=== PATIENT | male | born 1940 | race Caucasian/White ===

== ENCOUNTER 2019-03-30 15:10 | Outpatient (RCR) | payer MEDICARE, SELFPAY ==
[2019-02-03 13:38] LABS: Basophils Absolute Auto 0.07 K/mm3 (0.00-0.10); Basophils Percent Auto 0.7 % (0.0-1.0); Eosinophils Absolute Auto 0.48 K/mm3 (0.02-0.50); Hematocrit 41.9 % (37.0-46.0); Hemoglobin 13.5 g/dL (12.4-15.3); Immature Granulocyte Absolute 0.13 K/mm3 (0.00-0.00); Immature Granulocyte Percent A 1.4 % (0.0-0.0); Lymphocytes Absolute Auto 1.85 K/mm3 (1.10-4.50); Lymphocytes Percent Auto 19.3 % (18.0-42.0); Mean Corpuscular HGB Conc 32.2 g/dL (32.0-36.0); Mean Corpuscular Hemoglobin 31.8 pg (27.0-31.0); Mean Corpuscular Volume 98.8 fL (78.0-102.0); Mean Platelet Volume 9.1 fl (8.7-11.0); Monocytes Absolute Auto 0.73 K/mm3 (0.10-0.90); Monocytes Percent Auto 7.6 % (2.0-11.0); Neutrophils Absolute Auto 6.4 K/mm3 (1.7-7.2); Platelet Count Result 158 K/mm3 (150-420); Red Blood Count 4.24 M/mm3 (4.70-6.10); Red Cell Distribution Width 14.1 % (11.6-14.4); White Blood Count 9.6 K/mm3 (4.8-10.8)
== END 2019-05-04 23:59 | disposition home or self-care (01) ==
LOC: CHSLAB 15:10
PROVIDERS: PCP Internal Medicine; Visit Provider Internal Medicine Pulmonary Disease
DX: Z79.899 Other long term (current) drug therapy (principal)
CPT/HCPCS: 36415; 85025

== ENCOUNTER 2019-04-19 16:43 | Inpatient (IN) | payer MEDICARE, MEDICAID, SELFPAY ==
[2019-04-19] VITALS (10 sets, daily range): BP systolic 114–166; BP diastolic 74–112; PULSE 84–91; RESP 16–28; TEMP 36.7–36.8; O2SAT 94–99; BMI 20.1
--- NOTE | ~2019-04-19 | XR_ITS ---
EXAMINATION: XR chest 1V portable DATE: 04/19/2019 17:29 INDICATION: Shortness of breath and cough TECHNIQUE: frontal view of the chest was obtained. COMPARISON: Chest radiograph dated 12/12/[address] dated 10/27/1989 FINDINGS: Severe emphysema with regions of increased lucency and architectural distortion most prominent at the lateral lower lung zones. Unchanged oblique band of lingular atelectasis/scarring extending laterall y from the left hilum. Subtle linear discoid atelectasis in the right midlung zone and at the left co stophrenic angle. Couple calcified nodules consistent with old granulomatous disease in the right low er lobe no new airspace opacities, pulmonary edema, pleural effusion or pneumothorax. The cardiomedia stinal silhouette is normal. Mild thoracic levocurvature. IMPRESSION: 1. Severe emphysema with bilateral discoid atelectasis/scarring, new at the left costophrenic angle a nd otherwise unchanged. Reviewed, dictated and finalized at location A. ET RESEARCH ANALYST IMPRESSION: 1. Severe emphysema with bilateral discoid atelectasis/scarring, new at the lef t costophrenic angle and otherwise unchanged.
--- NOTE | ~2019-04-19 | CT_ITS ---
EXAMINATION: CTA chest PE protocol DATE: 04/19/2019 19:06 INDICATION: Prior pulmonary embolism presenting with shortness of breath and elevated d-dimer TECHNIQUE: Computed tomography (CT) pulmonary angiogram of the chest was performed with 100 mL Omnipa que-350 intravenous contrast. Additional 3D reconstructions utilizing coronal maximum intensity proje ction (MIP) were performed. Automated exposure control and iterative reconstruction technique were em ployed. The dose-length product was 209.88 mGy-cm. COMPARISON: 10/27/2018 FINDINGS: Excellent contrast opacification of the pulmonary arteries. There is mild streak artifact from dense contrast in the superior vena cava and right atrium. Pattern respiratory motion artifact is prominent at the lung bases were decreases sensitivity in the basilar subsegmental pulmonary arteries. No sign ificant change in an eccentric filling defect extending across the bifurcation of the left main pulmo nary artery consistent with chronic thrombus. No acute pulmonary embolism. Severe emphysema with unch anged pattern of chronic bandlike atelectasis/scarring in the right middle and anterior right upper l obes and in the left upper lobe along the major fissure. There is new patchy airspace consolidation a t the perihilar posterior segment of the left upper lobe suspicious for pneumonia. A few calcified no dules in the left lower lobe consistent with old granulomatous disease. No pleural effusion. Heart si ze is normal. Atherosclerotic coronary artery calcifications. No pericardial effusion. Small sliding- type hiatal hernia. No pathologically enlarged thoracic adenopathy. 2.5 cm exophytic cyst at the uppe r pole of the left kidney. Partially visualized aortobiiliac stent graft. Mild to moderate thoracic s pondylosis and severe lower cervical spondylosis. Chronic mild anterior wedging of a few mid thoracic vertebral bodies. IMPRESSION: 1. Unchanged chronic nonocclusive peripheral thrombus at the bifurcation of the left main pulmonary a rtery. No acute pulmonary embolism. 2. Severe emphysema with bilateral chronic scarring. 3. New airspace disease in the posterior left upper lobe concerning for pneumonia. 4. Small sliding-type hiatal hernia. Reviewed, dictated and finalized at location A. TAL ACCOUNT COORDINATOR IMPRESSION: 1. 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 No acute pulmonary embolism. 2. Severe emphysema with bilateral chronic scarring. 3. New airspace disease in the posterior left upper lobe concerning for pneumon ia. 4. Small sliding-type hiatal hernia.
--- NOTE | 2019-04-19 17:10 | ECG_ITS ---
Measurements Intervals [place] Rate: 89 P: 79 SD: 164 QRS: 81 QRSD: 86 T: 75 QT: 357 QTc: 434 Interpretive Statements SINUS RHYTHM DELAYED PRECORDIAL R/S TRANSITION BASELINE ARTIFACT- AVF, V1-V6 BORDERLINE ECG Electronically Signed On 04-20-2019 7:18:20 CAMPAIGN MANAGEMENT SPECIALIST by Ryan Garcia D.O.
--- NOTE | 2019-04-19 17:10 | ED.SOB ---
HPI - SOB/Dyspnea General Chief Complaint: Shortness of Breath/Dyspnea Stated Complaint: Ambulance Related Data Home Medications Medication Instructions Recorded Confirmed Saccharomyces boulardii [Florastor] 250 mg PO BID 04/19/19 04/19/19 ascorbic acid (vitamin C) [Vitamin 500 mg PO DAILY 04/19/19 04/19/19 C] aspirin [Aspirin Low Dose] 81 mg PO DAILY 04/19/19 04/19/19 budesonide 2 ml INHALATION BID 04/19/19 04/19/19 cholecalciferol (vitamin D3) 125 mcg PO DAILY 04/19/19 04/19/19 dextromethorphan-guaifenesin 1 tablet PO Q12H 04/19/19 04/19/19 [Mucinex DM] ipratropium-albuterol 3 ml INHALATION Q4H PRN 04/19/19 04/19/19 montelukast 10 mg PO DAILY 04/19/19 04/19/19 roflumilast [Daliresp] 500 mcg PO DAILY 04/19/19 04/19/19 warfarin 2 mg PO DAILY 04/19/19 04/19/19 Allergies Allergy/AdvReac Type Severity Reaction Status Date / Time prednisone Allergy Hives Verified 04/19/19 17:10 Review of Systems Review of Systems: Narrative: SOB, chest congestion and increased cough (occasional light green sputum) onset 3 - 4 days ago associated with D.O.E. 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 He has been on prednisone 10 mg daily for several years; followed by Dr. Singleton, pulmonology. Last seen in February, no change in meds. Appetite has been decreased. Denies fever/ chills. Hx of PE 10/2018, continues to take warfarin 2 mg daily. Hx of COPD; last exacerbation in December,, tx with azithromycin. Constitutional: Constitutional: Denies chills and Denies fever(s) Eyes: Eyes: Denies no additional eye complaints ENT: Denies nasal congestion and Denies sore throat Cardiovascular: Cardiovascular: Denies chest pain Respiratory: Respiratory: Reports no additional respiratory complaints Gastrointestinal: Gastrointestinal: Denies abdominal pain, Denies diarrhea and Denies vomiting Genitourinary: Genitourinary: Denies urinary incontinence Neurologic: Denies syncope Psychiatric: Psychiatric: Denies anxiety and Denies depression Hematologic/Lymphatic: Hematologic/Lymphatic: Reports easy bruising Allergic/Immunologic: Allergic/Immunologic: Reports other Comments: Hx of being on prednisone 30 mg daily for several weeks, breaking out with raised, hive like rash on trunk and lower extremities. The rash did not come and go and was very pruritic; did not involve the hands, face or mouth. The dose of prednisone was dropped to 10 mg daily. The rash resolved over the next 2 - 3 weeks. 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 [facility] Past Medical History Medical History (Updated 04/19/19 @ 19:49 by Tommy Martins MD) COPD (chronic obstructive pulmonary disease) Pulmonary embolus October 2018 Surgical History Surgical History (Updated 04/19/19 @ 17:41 by Tommy Martins MD) History of repair of aneurysm of abdominal aorta Stented coronary artery Social History Social History (Updated 04/19/19 @ 18:28 by Tommy Martins MD) Smoking status: Former smoker Living arrangements: alone Additional living arrangements comments: Daughter lives next door, makes meals, checks on him multiple times/day. of spouse 1 year ago. Gender identity (if verbalized by the patient): Male Exam Const: General: alert Orientation/consciousness: patient oriented x3 HENMT: Mouth: Yes Normal oral and palatal mucosa present Neck: Neck: no lymphadenopathy Chest: Chest palpation & inspection: normal inspection of the chest Resp: Effort & Inspection: retractions and uses accessory muscles Auscultation: rales (few crackles in both bases. ), no rhonchi and no wheezes Other: not in tripod position. Sitting up. Speaks in full sentences. Cardio: Other: No lift/heave/thrill I could not hear heart sounds. JVD at 20 degrees. GI: Inspection: distended GI Palp: Yes Soft to palpation, No Tenderness to palpation present (GI) and No Guarding due to palpation present (GI) : General: Yes bladder normal to palpation Skin: Othe
--- NOTE | 2019-04-19 17:11 | PC.NURSE ---
States he can take prednisone as long as it is less than 10mg dose. States if he takes a dose over 10mg he breaks out in hives.
[2019-04-19 17:29] LABS: Basophils Absolute Auto 0.02 K/mm3 (0.00-0.10); Basophils Percent Auto 0.2 % (0.0-1.0); Eosinophils Percent Auto 1.2 % (1.0-6.0); Hematocrit 44.1 % (37.0-46.0); Hemoglobin 14.2 g/dL (12.4-15.3); Immature Granulocyte Absolute 0.06 K/mm3 (0.00-0.00); Immature Granulocyte Percent A 0.7 % (0.0-0.0); Lymphocytes Absolute Auto 0.26 K/mm3 (1.10-4.50); Lymphocytes Percent Auto 3.1 % (18.0-42.0); Mean Corpuscular HGB Conc 32.2 g/dL (32.0-36.0); Mean Corpuscular Hemoglobin 31.6 pg (27.0-31.0); Mean Corpuscular Volume 98.2 fL (78.0-102.0); Mean Platelet Volume 9.1 fl (8.7-11.0); Monocytes Absolute Auto 0.27 K/mm3 (0.10-0.90); Monocytes Percent Auto 3.2 % (2.0-11.0); Neutrophils Absolute Auto 7.8 K/mm3 (1.7-7.2); Neutrophils Percent Auto 91.6 % (50.0-70.0); Platelet Count Result 224 K/mm3 (150-420); Red Blood Count 4.49 M/mm3 (4.70-6.10); Red Cell Distribution Width 13.2 % (11.6-14.4); White Blood Count 8.5 K/mm3 (4.8-10.8)
[2019-04-19] MEDS: IPRATROPIUM 0.5 MG/ALBUTEROL SULFATE 2.5 MG AMPUL.NEB 3 ML INHALATION ×2 (17:30→23:55)
[2019-04-19] MEDS: BUDESONIDE RESPULE NEB 0.5 MG/2 ML AMP 2 MG NEBULIZE (17:34)
[2019-04-19 17:47] LABS: Alanine Aminotransferase 19 U/L (16-63); Albumin Level 3.4 g/dL (3.4-5.0); Alkaline Phosphatase 58 U/L (46-116); Anion Gap 14.4 mmol/L (7-16); Aspartate Amino Transferase 13 U/L (15-37); Bilirubin,Total 0.5 mg/dL (0.00-1.00); Blood Urea Nitrogen 21 mg/dL (7-18); Carbon Dioxide 30 mmol/L (21-32); Chloride 103 mmol/L (98-108); Estimated CRCL calculation 39 ml/min; Estimated Glomerular Filt Rate 55; Glucose 112 mg/dL (70-99); Osmolality Calculated 300 mOsm/kg (285-295); Potassium 4.4 mmol/L (3.5-5.1); Sodium 143 mmol/L (136-145); Total Protein 7.6 g/dL (6.4-8.2)
[2019-04-19 17:48] LABS: Troponin I < 0.02 ng/mL (0.00-0.056)
[2019-04-19 17:49] LABS: INR 4.4; Lactic Acid 1.7 mmol/L (0.4-2.0); Prothrombin Time 43.5 Seconds (9.64-11.0)
[2019-04-19 17:51] LABS: D Dimer 1.98 mg/L (0.19-0.50)
[2019-04-19 17:57] LABS: BNP 65.7 pg/mL (0-100)
[2019-04-19 18:00] LABS: Influenza Control Valid (Valid)
--- NOTE | 2019-04-19 18:20 | PC.NURSE ---
Dr Martins at bedside discussing plan for CTA chest with pt.
[2019-04-19 18:32] LABS: Base Excess ABG 0.4 mmol/L (0-2); HCO3 ABG 26.4 mmol/L (23-29); Oxygen Content ABG 20.4 %vol (16.0-22.0); Oxygen Saturation ABG 98.3 % (95-97); Oxyhemoglobin 97.4 % (94-100); PCO2 ABG 47.2 mmHg (35-45); PO2 ABG 123.9 mmHg (75-85); Total Hemoglobin 14.8 g/dL; pH ABG 7.37 (7.35-7.45)
[2019-04-19 18:33] LABS: Device NASAL CANNULA; Modified Allen's Test Pass
[2019-04-19 18:35] LABS: Site Drawn RIGHT RADIAL
--- NOTE | 2019-04-19 19:28 | PC.NURSE ---
Pt resting on [facility]. No change in condition. Awaiting CTA chest results for dispo per Dr Martins.
[2019-04-19] MEDS: methylPREDNISolone SOD SUCC 125 MG VIAL 40 MG IV PUSH (19:52)
--- NOTE | 2019-04-19 19:57 | PC.NURSE ---
Pt aware of plan for admission. Room assignment received. Waiting for admission orders prior to calling report and transporting pt to the floor.
[2019-04-19] MEDS: SODIUM CHLORIDE 0.9% IV 1,000 ML 75 ML IV CONT (21:28)
--- NOTE | 2019-04-19 21:40 | PC.NURSE ---
pt and daughter request that she stay the night as he is very anxious, caden is here to attach the hi flow 02 for him, pt sitting up on side of bed, given jello and pb/crackers on request, fluids started, pt has no complaints at this time
[2019-04-20] VITALS (18 sets, daily range): BP systolic 106–135; BP diastolic 68–95; PULSE 74–109; RESP 14–26; TEMP 36.2–37.1; O2SAT 94–97
[2019-04-20] MEDS: methylPREDNISolone SOD SUCC 125 MG VIAL 40 MG IV PUSH ×2 (05:35→09:28)
[2019-04-20] MEDS: IPRATROPIUM 0.5 MG/ALBUTEROL SULFATE 2.5 MG AMPUL.NEB 3 ML INHALATION ×3 (05:40→18:19)
[2019-04-20] MEDS: BUDESONIDE RESPULE NEB 0.5 MG/2 ML AMP 1 MG INHALATION ×2 (05:51→18:21)
[2019-04-20 05:55] LABS: Magnesium 2.1 mg/dL (1.8-2.4)
[2019-04-20 06:03] LABS: INR 4.7
--- NOTE | 2019-04-20 06:15 | PC.NURSE ---
Patient had difficulty breathing after 2nd neb treatment. Congestion present and patient was having difficulty clearing it out. Coughed up thick blood tinged sputum. breathing improved. RT present.
--- NOTE | 2019-04-20 08:01 | PC.NURSE ---
up sitting on edge of bed, no assistance needed to get to sitting position, oxygen continues, no change
[2019-04-20] MEDS: ENOXAPARIN 40 MG/0.4 ML SYRINGE SUB-Q (09:28)
[2019-04-20] MEDS: MONTELUKAST SODIUM 10 MG TABLET PO (09:29)
[2019-04-20] MEDS: ASCORBIC ACID 500 MG TABLET PO (09:29)
[2019-04-20] MEDS: ASPIRIN 81 MG ENTERIC TABLET PO (09:29)
[2019-04-20] MEDS: CHOLECALCIFEROL 1,000 UNIT TABLET 5000 UNITS PO (09:30)
--- NOTE | 2019-04-20 09:30 | PC.NURSE ---
fluids infusing, sitting on edge of bed, family in room, oxygen continues, loose cough continues, offers no c/o
[2019-04-20] MEDS: SACCHAROMYCES BOULARDII 250 MG CAPSULE PO ×2 (09:39→18:20)
[2019-04-20] MEDS: ROFLUMILAST 500 MCG TABLET PO (09:39)
--- NOTE | 2019-04-20 10:00 | PM.IMHP ---
H&P: HPI History of Present Illness Chief complaint: Ambulance Narrative: José Miguel Diaz is a 79 year old male with SOB, chest congestion and increased cough (occasional light green sputum). This started approximately 3 - 4 days ago and was associated with worsening dyspnea during exertion. He was on 10 LPM of O2 NC continuously in the ED. He has COPD and been on Prednisone 10 mg daily for several years and followed by [employer] Dr. Singleton. His last COPD exacerbation was in December 2018 and he was treated with Azithromycin. He was last seen in February 2019 with no change in meds. His appetite has been decreased. He denies fever or chills. He does have a history of PE in October 2018 and continues to take warfarin 2 mg daily. He had an unproductive cough every few minutes in the E.D. for several hours, followed by a coughing up a glob of dark blood. Pt. has no hx of lung CA. CT chest showed no mass. ED physician Dr. Martins felt it was likely bronchial bleeding from the coughing associated with slight prolongation of INR. José Miguel reported in the ED of having a history of being on Prednisone 30 mg daily for several weeks, breaking out with raised, hive like rash on trunk and lower extremities. The rash did not come and go and was very pruritic; but did not involve the hands, face or mouth. SO, his maintenance dose of prednisone was dropped to 10 mg daily. The rash resolved over the next 2 - 3 weeks. 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 Pt was admitted for pneumonia and COPD exacerbation. José Miguel has been on 10 liters of nasal 02 for several years. Blood gases were evaluated in the ED. ED provider started him on a dose of 40 mg methylprednisolone and admitted him to monitor for rash as well as improved respiratory fxn. TODAY, José Miguel appears comfortable at this time, able to take deep breaths to command without pain or difficulty. His daughter is at his bedside and his other daughter/POA is on the telephone via speaker. Denies chest pain or worsening SOB, denies abdominal pain or urinary concerns. Will titrate his O2 between 8-10 LPM High-Flow NC with resevoir. Getting IV solumedrol, home inhalers as well as nebulizer txs here. Review of Systems Constitutional: Constitutional: Denies chills and Denies fever(s) Eyes: Eyes: Denies no additional eye complaints ENT: Denies nasal congestion and Denies sore throat Cardiovascular: Cardiovascular: Denies chest pain and Denies syncope Respiratory: Respiratory: Reports no additional respiratory complaints, Reports chest congestion, Reports cough, Reports hemoptysis, Reports excessive phlegm production, Reports dyspnea and Reports dyspnea on exertion Comments: worsening shortness of breath with simple activity and exertion. Gastrointestinal: Gastrointestinal: Denies abdominal pain, Denies diarrhea and Denies vomiting Genitourinary: Genitourinary: Denies urinary incontinence Musculoskeletal: Musculoskeletal: Reports as per HPI and Reports muscle weakness Neurologic: Denies syncope Psychiatric: Psychiatric: Denies anxiety and Denies depression Hematologic/Lymphatic: Hematologic/Lymphatic: Reports easy bruising Allergic/Immunologic: Allergic/Immunologic: Reports other [facility] Past Medical History Medical History COPD (chronic obstructive pulmonary disease) Pulmonary embolus October 2018 Surgical History Surgical History History of repair of aneurysm of abdominal aorta Stented coronary artery Social History Social History Smoking packs per day: 1 Smoking cigarettes per day: 20.0 Smoking status: Former smoker Tobacco type: cigarettes Smokeless tobacco user: chewing tobacco Second hand tobacco smoke exposure: Yes Alcohol intake: never Substance use: never Living arrangements: alone Additional living arrangements comments: [facility]
--- NOTE | 2019-04-20 10:30 | PC.NURSE ---
continues to sit on edge of bed, call light and personal items in reach of patient, fluids infusing
--- NOTE | 2019-04-20 10:36 | ECHO_ITS ---
Patient Info Name: José Miguel iDaz Age: 79 years : 1940 Gender: Male Ht: 69 in Wt: 136 lbs BSA: 1.73 m2 HR: 95 bpm BP: 117 / 75 mmHg Heart Rhythm: Sinus Rhythm Technical Quality: Fair Exam Date: 04/20/2019 2:39 PM Exam Location: [facility] Patient Status: Inpatient Admit Date: 04/19/2019 Staff Ordering Physician: Gisele Clancy NP Tie Presser: Luis Robles RDCS Attending Provider: Tommy Martins MD Referring Physician: Aston MODI; Exam Type: CA echo doppler color flow Study Info Indications R06.00 - Dyspnea, unspecified Complete two-dimensional, color flow and Doppler transthoracic echocardiogram is performed. History/Risk Factors COPD exacerbation; SOB, PE 2018, CAD w/stent. Summary 1. Left ventricular chamber dimension is normal. 2. Left ventricular systolic function is normal, estimated at 55-60%. 3. There is mildly increased left ventricular wall thickness. 4. The left ventricular diastolic function is grade I diastolic dysfunction. 5. Tissue doppler is not performed. 6. Left atrial chamber dimension is mildly enlarged. 7. The aortic root size at the sinus of Valsalva is borderline dilated at 4.0 cm. 8. Dilated inferior vena cava with >50% collapse upon inspiration consistent with elevated right atrial pressure, 10 mmHg. Left Ventricle Tissue doppler is not performed. Left ventricular chamber dimension is normal. Left ventricular systolic function is normal, estimated at 55-60%. There is mildly increased left ventricular wall thickness. The left ventricular diastolic function is grade I diastolic dysfunction. Right Ventricle Right ventricular chamber dimension is normal. Right ventricular systolic function is normal. Left Atria Left atrial chamber dimension is mildly enlarged. Right Atria Right atrial chamber dimension is normal. Aortic Valve The aortic valve is trileaflet. There is no aortic valve stenosis. There is no aortic valve regurgitation. Pulmonic Valve There is no pulmonic regurgitation. Mitral Valve There is no mitral valve stenosis. There is no mitral valve regurgitation. Tricuspid Valve There is no tricuspid valve regurgitation. No tricuspid valve vegetation visualized. Pericardium/Pleural There is no pericardial effusion. Inferior Vena Cava Dilated inferior vena cava with >50% collapse upon inspiration consistent with elevated right atrial pressure, 10 mmHg. Aorta The aortic root size at the sinus of Valsalva is borderline dilated at 4.0 cm. Left Ventricular Outflow Tract Name Value Normal LVOT 2D LVOT Diameter 1.9 cm LVOT Doppler LVOT Peak Velocity 98 cm/s LVOT Peak Gradient 4 mmHg LVOT Mean Gradient 2 mmHg LVOT VTI 17 cm LVOT VTI/AV VTI Ratio 0.7 LVOT Stroke Volume 49 ml Mitral Valve Name Value Normal
[2019-04-20] MEDS: SODIUM CHLORIDE 0.9% IV 1,000 ML 75 ML IV CONT (11:06)
[2019-04-20] MEDS: PHARMACIST COMMUNICATION ORDER 1 EACH XX (11:08)
--- NOTE | 2019-04-20 11:24 | PC.NURSE ---
Sitting on edge of bed, denies needs at this time, oxygen per oximizer at 9L and tolerated well, loose productive cough continues, fluids infusing, daughter with patient
[2019-04-20] MEDS: ACETAMINOPHEN 500 MG TABLET 1000 MG PO ×2 (12:35→19:15)
--- NOTE | 2019-04-20 12:35 | PC.NURSE ---
given tylenol for headache
--- NOTE | 2019-04-20 14:31 | PC.NURSE ---
New IV site started, fluids infusing, right wrist, old site infiltrated and pressure dressing applied
--- NOTE | 2019-04-20 14:34 | PC.NURSE ---
Tech here to do Echo
[2019-04-20 16:52] LABS: Phosphorus 3.7 mg/dL (2.6-4.7)
--- NOTE | 2019-04-20 23:50 | PC.NURSE ---
Sleeping with head of bed up [address] with O2@8L with humidity connected. Daughter sleeping in recliner.1000ml 0.9NS infusing at 75ml/per hour per IV pump. No distress noted.
[2019-04-21] VITALS (15 sets, daily range): BP systolic 106–135; BP diastolic 72–91; PULSE 76–101; RESP 18–22; TEMP 36.3–37.2; O2SAT 95–98
[2019-04-21] MEDS: IPRATROPIUM 0.5 MG/ALBUTEROL SULFATE 2.5 MG AMPUL.NEB 3 ML INHALATION ×4 (00:53→18:29)
[2019-04-21] MEDS: SODIUM CHLORIDE 0.9% IV 1,000 ML 75 ML IV CONT (01:00)
[2019-04-21] MEDS: BUDESONIDE RESPULE NEB 0.5 MG/2 ML AMP 1 MG INHALATION (05:57)
[2019-04-21 06:02] LABS: Prothrombin Time 48.5 Seconds (9.64-11.0)
--- NOTE | 2019-04-21 06:12 | PC.NURSE ---
Sleeping,Daughter at bedside sleeping in recliner. No complaints of shortness of breath or pain.
[2019-04-21] MEDS: ASPIRIN 81 MG ENTERIC TABLET PO (09:19)
[2019-04-21] MEDS: methylPREDNISolone SOD SUCC 40 MG VIAL IV PUSH (09:19)
[2019-04-21] MEDS: MONTELUKAST SODIUM 10 MG TABLET PO (09:19)
[2019-04-21] MEDS: CHOLECALCIFEROL 1,000 UNIT TABLET 5000 UNITS PO (09:19)
[2019-04-21] MEDS: ASCORBIC ACID 500 MG TABLET PO (09:19)
[2019-04-21] MEDS: SACCHAROMYCES BOULARDII 250 MG CAPSULE PO ×2 (09:20→18:31)
[2019-04-21] MEDS: ROFLUMILAST 500 MCG TABLET PO (09:20)
[2019-04-21 13:14] LABS: Hematocrit 39.6 % (37.0-46.0); Hemoglobin 12.8 g/dL (12.4-15.3); Mean Corpuscular HGB Conc 32.3 g/dL (32.0-36.0); Mean Corpuscular Hemoglobin 31.7 pg (27.0-31.0); Mean Platelet Volume 9.2 fl (8.7-11.0); Platelet Count Result 208 K/mm3 (150-420); Red Blood Count 4.04 M/mm3 (4.70-6.10); Red Cell Distribution Width 13.5 % (11.6-14.4); White Blood Count 11.5 K/mm3 (4.8-10.8)
[2019-04-21 13:31] LABS: Alanine Aminotransferase 18 U/L (16-63); Alkaline Phosphatase 45 U/L (46-116); Anion Gap 12.2 mmol/L (7-16); Aspartate Amino Transferase 15 U/L (15-37); Bilirubin,Total 0.4 mg/dL (0.00-1.00); Blood Urea Nitrogen 19 mg/dL (7-18); Calcium 8.8 mg/dL (8.5-10.1); Carbon Dioxide 28 mmol/L (21-32); Chloride 108 mmol/L (98-108); Estimated CRCL calculation 41 ml/min; Estimated Glomerular Filt Rate 58; Glucose 108 mg/dL (70-99); Osmolality Calculated 301 mOsm/kg (285-295); Potassium 4.2 mmol/L (3.5-5.1); Sodium 144 mmol/L (136-145); Total Protein 6.8 g/dL (6.4-8.2)
[2019-04-21] MEDS: ACETAMINOPHEN 500 MG TABLET 1000 MG PO (13:52)
--- NOTE | 2019-04-21 15:35 | PC.NURSE ---
Patient resting quietly in bed with hob elevated. Daughters in room with patient to visit. Denies any needs at this time.
--- NOTE | 2019-04-21 16:07 | PM.IMPN ---
Progress Note: A&P Assessment and Plan (1) Community acquired pneumonia: Onset Date: ~04/19/19 Code(s): J18.9 - Pneumonia, unspecified organism Status: Acute Assessment and Plan: Much less brochospasms and intense coughing today, none during exam. on daily 40mg Solumedrol IV. on IV Zosyn. Ordered incentive spirometer. on Albuterol Q6H RT PRN nebs. on Duo Nebs Q6H RT scheudled. (2) COPD (chronic obstructive pulmonary disease): Onset Date: Unknown Code(s): J44.9 - Chronic obstructive pulmonary disease, unspecified Status: Acute Assessment and Plan: His last ECHO per PCP DR. Gómez's office was 02/12/2017 and showed LV size normal, LVEF 60-65%. Right Ventricle is moderately enlarged and RVfxn. severely depressed. Moderate tricuspid regurg. Moderate pulmonary HTN with peak PA pressure 53 mmHg. ECHO discussed below. CT scan completed. (3) Emphysema with both acute and chronic bronchitis: Onset Date: Unknown Code(s): J44.0 - Chronic obstructive pulmonary disease with (acute) lower respiratory infection; J20.9 - Acute bronchitis, unspecified Status: Acute Assessment and Plan: Continue his Budesonide, Mucinex DM Q 12, Ipratropium-Albuterol Q4H PRN (now Q6H scheduled), Montelukast (Singular), and Daliresp. Continue his daily Vit. D (4) Elevated d-dimer: Code(s): R79.89 - Other specified abnormal findings of blood chemistry Status: Acute Assessment and Plan: His D-dimer at admission was 1.98 on Apr.19. CTA scan was completed since patient has prior history of PE (on coumadin at home) presented to ED with SOB and elevated D-dimer yesterday's CT showed: No significant change in an eccentric filling defect extending across the bifurcation of the left main pulmonary artery consistent with chronic thrombus. No acute pulmonary embolism. Severe emphysema with unchanged pattern of chronic bandlike atelectasis/scarring in the right middle and anterior right upper lobes and in the left upper lobe along the major fissure. There is new patchy airspace consolidation at the perihilar posterior segment of the left upper lobe suspicious for pneumonia. A few calcified nodules in the left lower lobe consistent with old granulomatous disease. No pleural effusion. Heart size is normal. Atherosclerotic coronary artery calcifications. No pericardial effusion. Small sliding-type hiatal hernia. No pathologically enlarged thoracic adenopathy. 2.5 cm exophytic cyst at the upper pole of the left kidney. Partially visualized aortobiiliac stent graft. Mild to moderate thoracic spondylosis and severe lower cervical spondylosis. Chronic mild anterior wedging of a few mid thoracic vertebral bodies. IMPRESSION: 1. 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 No acute pulmonary embolism. 2. Severe emphysema with bilateral chronic scarring. 3. New airspace disease in the posterior left upper lobe concerning for pneumonia. 4. Small sliding-type hiatal hernia. 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 Continued his daily Warfarin, INR supertherapeutic at this time. Continue his daily ASA 81 mg. ABG on his home O2 level of 10 L was pH 7.37, pCO2 47.2 high, pO2 123.9 high, HCO3 26.4. Will titrate his O2 between 8-10 LPM High-Flow NC with resevoir. He appears comfortable at this time, able to take deep breaths to command without pain or difficulty. Denies chest pain or worsening SOB, denies abdominal pain or urinary concerns. (5) Abnormal echocardiogram: Code(s): R93.1 - Abnormal findings on diagnostic imaging of heart and coronary circulation Status: Acute Assessment and Plan: ECHO done today showed: Left ventricular chamber dimension is normal. Left ventricular systolic function is normal, estimated at 55-60%.There is mildl
[2019-04-21] MEDS: BUDESONIDE RESPULE NEB 0.5 MG/2 ML AMP INHALATION (18:30)
--- NOTE | 2019-04-21 23:04 | PM.EVENT ---
Event Note Event Note Event Note: patient states that he is still having continuing dyspnea but his cough is less productive and he has improved since admission. Currently on 8 L by nasal cannula. Complains of anxiety. Decreased breath sounds throughout with late expiratory wheezing. No rales or rhonchi. [id number] respiratory distress. Regular rate rhythm without murmur. No edema. Another day of antibiotics and steroids are appropriate as is aggressive pulmonary toilet. Have reviewed the chart and examined the patient. I have discussed the patient's care with A Aston WU and agree with her assessment and plan.
--- NOTE | 2019-04-21 23:05 | PC.NURSE ---
Patient appears to be sleeping by the rsie and fall of his chest. O2 @ 8 lpm/oxymizer. Respirations even and unlabored. No distress noted. Daughter sleeping in recliner. Call light in reach.
[2019-04-22] VITALS (11 sets, daily range): BP systolic 117–138; BP diastolic 80–87; PULSE 78–109; RESP 18–22; TEMP 36.6–37; O2SAT 95–96
[2019-04-22] MEDS: IPRATROPIUM 0.5 MG/ALBUTEROL SULFATE 2.5 MG AMPUL.NEB 3 ML INHALATION ×3 (00:16→12:56)
--- NOTE | 2019-04-22 01:50 | PC.NURSE ---
Patient appears to be sleeping by the rise and fall of his chest. O2 on @ 8 lpm/oxymizer. Respirations even and unlabored. No distress noted. Daughter sleeping in recliner. Call light in reach.
[2019-04-22 05:23] LABS: Hematocrit 38.5 % (37.0-46.0); Hemoglobin 12.4 g/dL (12.4-15.3); Mean Corpuscular HGB Conc 32.2 g/dL (32.0-36.0); Mean Corpuscular Hemoglobin 31.6 pg (27.0-31.0); Mean Corpuscular Volume 98.2 fL (78.0-102.0); Platelet Count Result 196 K/mm3 (150-420); Red Blood Count 3.92 M/mm3 (4.70-6.10); Red Cell Distribution Width 13.7 % (11.6-14.4); White Blood Count 8.5 K/mm3 (4.8-10.8)
[2019-04-22 05:34] LABS: INR 2.9; Prothrombin Time 28.5 Seconds (9.64-11.0)
[2019-04-22 05:37] LABS: BNP 69.5 pg/mL (0-100)
[2019-04-22 05:39] LABS: Alanine Aminotransferase 18 U/L (16-63); Albumin Level 2.9 g/dL (3.4-5.0); Alkaline Phosphatase 40 U/L (46-116); Anion Gap 12.2 mmol/L (7-16); Aspartate Amino Transferase 16 U/L (15-37); Bilirubin,Total 0.4 mg/dL (0.00-1.00); Blood Urea Nitrogen 17 mg/dL (7-18); Calcium 8.5 mg/dL (8.5-10.1); Carbon Dioxide 29 mmol/L (21-32); Chloride 109 mmol/L (98-108); Estimated CRCL calculation 38 ml/min; Estimated Glomerular Filt Rate 54; Glucose 80 mg/dL (70-99); Osmolality Calculated 302 mOsm/kg (285-295); Potassium 4.2 mmol/L (3.5-5.1); Sodium 146 mmol/L (136-145); Total Protein 6.4 g/dL (6.4-8.2)
[2019-04-22] MEDS: BUDESONIDE RESPULE NEB 0.5 MG/2 ML AMP INHALATION (05:42)
[2019-04-22] MEDS: ASCORBIC ACID 500 MG TABLET PO (08:45)
[2019-04-22] MEDS: MONTELUKAST SODIUM 10 MG TABLET PO (08:45)
[2019-04-22] MEDS: ASPIRIN 81 MG ENTERIC TABLET PO (08:45)
[2019-04-22] MEDS: methylPREDNISolone SOD SUCC 40 MG VIAL IV PUSH (08:46)
[2019-04-22] MEDS: SACCHAROMYCES BOULARDII 250 MG CAPSULE PO (08:46)
[2019-04-22] MEDS: CHOLECALCIFEROL 1,000 UNIT TABLET 5000 UNITS PO (09:33)
[2019-04-22] MEDS: ROFLUMILAST 500 MCG TABLET PO (09:33)
[2019-04-22 09:48] LABS: Vitamin D 25 Hydroxy 79 ng/mL (30-100)
--- NOTE | 2019-04-22 12:19 | PC.NURSE ---
Sitting on edge of bed eating lunch
--- NOTE | 2019-04-22 12:52 | PC.NURSE ---
Up to commode, x1 large BM formed
--- NOTE | 2019-04-22 12:57 | PM.DS ---
DS: Diagnosis Admitting Diagnosis Admitting Diagnosis: Pneumonia, unspecified organism <Claudia FinchJustine Dalton AMANDAC - Last Filed: 04/22/19 13:45> Discharge Diagnosis (1) Community acquired pneumonia: Onset Date: ~04/19/19 <Claudia FinchJustine Dalton AMANDAC - Last Filed: 04/22/19 13:45> Code(s): J18.9 - Pneumonia, unspecified organism <Claudia FinchJustine Dalton AMANDAC - Last Filed: 04/22/19 13:45> Status: Acute <Claudia FinchJustine Dalton AMANDAC - Last Filed: 04/22/19 13:45> Assessment and Plan: patient condition stable - patient currently on a Oxymizer at 8 L patient home to is usually at 10 L. - contacted Dr. Singleton with update on patient's condition - patient to continue inhaler and nebulizers at home with home O2 - patient will discharge home with Levaquin 750 mg Q 48 hours for 5 days <Marianokrista Hoffman AMANDAC - Last Filed: 04/22/19 13:45> (2) COPD (chronic obstructive pulmonary disease): Onset Date: Unknown <Claudia FinchJustine Hoffman AMANDAC - Last Filed: 04/22/19 13:45> Code(s): J44.9 - Chronic obstructive pulmonary disease, unspecified <Claudia FinchJustine Hoffman AMANDAC - Last Filed: 04/22/19 13:45> Status: Acute <Claudia FinchJustine Hoffman AMANDAC - Last Filed: 04/22/19 13:45> Assessment and Plan: His last ECHO per PCP DR. Gómez's office was 02/12/2017 and showed LV size normal, LVEF 60-65%. Right Ventricle is moderately enlarged and RVfxn. severely depressed. Moderate tricuspid regurg. Moderate pulmonary HTN with peak PA pressure 53 mmHg. - continue use of home O2 with Oxymizer - patient will follow-up with Dr. Singleton - continue nebulizers and inhalers - discharged with dexamethasone once complete will resume daily prednisone <Marianokrista Hoffman AMANDAC - Last Filed: 04/22/19 13:45> (3) Emphysema with both acute and chronic bronchitis: Onset Date: Unknown <ARACELI Thorpe - Last Filed: 04/22/19 13:45> Code(s): J44.0 - Chronic obstructive pulmonary disease with (acute) lower respiratory infection; J20.9 - Acute bronchitis, unspecified <ARACELI Thorpe - Last Filed: 04/22/19 13:45> Status: Acute <ARACELI Thorpe - Last Filed: 04/22/19 13:45> Assessment and Plan: Continue his Budesonide, Mucinex DM Q 12, Ipratropium-Albuterol Q4H PRN (now Q6H scheduled), Montelukast (Singular), and Daliresp. refer to COPD notes <ARACELI Thorpe - Last Filed: 04/22/19 13:45> (4) Elevated d-dimer: Code(s): R79.89 - Other specified abnormal findings of blood chemistry <ARACELI Thorpe - Last Filed: 04/22/19 13:45> Status: Acute <ARACELI Thorpe - Last Filed: 04/22/19 13:45> Assessment and Plan: - patient with a history of of PE October 2018 - continue the use of Coumadin His D-dimer at admission was 1.98 on Apr.19. -CT showed: No significant change in an eccentric filling defect extending across the bifurcation of the left main pulmonary artery consistent with chronic thrombus. No acute pulmonary embolism. - follow-up with PCP <Claudia FinchJustine Dalton AMANDADominga - Last Filed: 04/22/19 13:45> (5) Abnormal echocardiogram: Code(s): R93.1 - Abnormal findings on diagnostic imaging of heart and coronary circulation <Claudia Hoffman ARACELI - Last Filed: 04/22/19 13:45> Status: Acute <ARACELI Thorpe - Last Filed: 04/22/19 13:45> Assessment and Plan: ECHO done today showed: Left ventricular chamber dimension is normal. Left ventricular systolic function is normal, estimated at 55-60%.There is mildly increased left ventricular wall thickness. The left ventricular diastolic function is grade I diastolic dysfunction.Left atrial chamber dimension is mildly enlarged.The aortic root size at the sinus of Valsalva is borderline dilated atn4.0 cm. Dilated inferior vena cava with >50% collapse upon inspiration consistent with elevated right atr
--- NOTE | 2019-04-22 13:28 | PC.NURSE ---
saline lock removed intact, bandage applied, daughter to assist in getting dressed
--- NOTE | 2019-04-22 14:52 | PC.NURSE ---
Daughter here and getting patient dressed for dc to home, brought home oxygen tank
--- NOTE | 2019-04-22 15:15 | PC.NURSE ---
Discharge via wheel chair and oxygen to home, medication returned to patient, personal items given to elle
--- NOTE | 2019-04-27 13:28 | PC.NURSE ---
Discharge Call Back [phone] no answer left a message
== END 2019-04-22 15:15 | disposition home health service (06) | DRG 190 ==
LOC: CHSED 16:57 → CHS2ND 19:53
PROVIDERS: Nurse Practitioner; Admitting Provider Family Medicine; Emergency Provider Family Medicine; Visit Provider Family Medicine
DX: J44.0 Chronic obstructive pulmonary disease with (acute) lower respiratory infection (principal); J18.9 Pneumonia, unspecified organism; Z86.711 Personal history of pulmonary embolism; Z79.01 Long term (current) use of anticoagulants; I27.82 Chronic pulmonary embolism; J20.9 Acute bronchitis, unspecified; J44.1 Chronic obstructive pulmonary disease with (acute) exacerbation; R93.1 Abnormal findings on diagnostic imaging of heart and coronary circulation; Z87.891 Personal history of nicotine dependence; Z99.81 Dependence on supplemental oxygen
CPT/HCPCS: 36415; 36600; 71045; 71275; 80053; 82306; 82805; 83605; 83735; 83880; 84100; 84484; 85025; 85027; 85380; 85610; 87040; 87070; 87205; 87804; 93005; 93306; 94640; 96374; 96375; 97110; 97161; 97530; 99283; 99285; A9270; J1650; J2543; J2920; J2930; J7030; Q9965

== ENCOUNTER 2019-05-01 15:38 | Outpatient (CLI) | payer MEDICARE, MEDICAID, SELFPAY ==
--- NOTE | ~2019-05-01 | XR_ITS ---
XR chest 2V DATE: 05/01/2019 16:07 INDICATION: Shortness of breath TECHNIQUE: PA and lateral views COMPARISON: None FINDINGS: There is severe emphysema. No infiltrate or consolidation is evident. No pulmonary vascul ar congestion or pleural effusion or pneumothorax. Normal heart size. Coronary artery stent. Endov ascular abdominal aortic stent. Diffuse osteopenia. IMPRESSION: Severe emphysema Reviewed, dictated and finalized at location B. ICATING MACHINE TENDER IMPRESSION: Severe emphysema
[2019-05-01 15:55] LABS: Basophils Absolute Auto 0.03 K/mm3 (0.00-0.10); Basophils Percent Auto 0.2 % (0.0-1.0); Eosinophils Absolute Auto 0.27 K/mm3 (0.02-0.50); Eosinophils Percent Auto 1.8 % (1.0-6.0); Hematocrit 45.4 % (37.0-46.0); Hemoglobin 14.6 g/dL (12.4-15.3); Immature Granulocyte Absolute 0.27 K/mm3 (0.00-0.00); Immature Granulocyte Percent A 1.8 % (0.0-0.0); Lymphocytes Absolute Auto 0.24 K/mm3 (1.10-4.50); Lymphocytes Percent Auto 1.6 % (18.0-42.0); Mean Corpuscular HGB Conc 32.2 g/dL (32.0-36.0); Mean Corpuscular Hemoglobin 31.6 pg (27.0-31.0); Mean Corpuscular Volume 98.3 fL (78.0-102.0); Mean Platelet Volume 9.2 fl (8.7-11.0); Monocytes Absolute Auto 0.43 K/mm3 (0.10-0.90); Monocytes Percent Auto 2.9 % (2.0-11.0); Neutrophils Absolute Auto 13.7 K/mm3 (1.7-7.2); Neutrophils Percent Auto 91.7 % (50.0-70.0); Platelet Count Result 168 K/mm3 (150-420); Red Blood Count 4.62 M/mm3 (4.70-6.10); Red Cell Distribution Width 13.8 % (11.6-14.4); White Blood Count 14.9 K/mm3 (4.8-10.8)
[2019-05-01 16:08] LABS: INR 1.6
[2019-05-01 16:11] LABS: Alanine Aminotransferase 26 U/L (16-63); Albumin Level 3.1 g/dL (3.4-5.0); Alkaline Phosphatase 63 U/L (46-116); Anion Gap 10.9 mmol/L (7-16); Aspartate Amino Transferase 15 U/L (15-37); Bilirubin,Total 0.6 mg/dL (0.00-1.00); Blood Urea Nitrogen 31 mg/dL (7-18); Calcium 8.9 mg/dL (8.5-10.1); Carbon Dioxide 30 mmol/L (21-32); Chloride 104 mmol/L (98-108); Estimated Glomerular Filt Rate 55; Glucose 93 mg/dL (70-99); Osmolality Calculated 296 mOsm/kg (285-295); Potassium 4.9 mmol/L (3.5-5.1); Sodium 140 mmol/L (136-145); Total Protein 6.9 g/dL (6.4-8.2)
== END 2019-05-01 15:39 | disposition home or self-care (01) ==
PROVIDERS: PCP Internal Medicine; Visit Provider Internal Medicine
DX: J18.9 Pneumonia, unspecified organism (principal); I50.9 Heart failure, unspecified
CPT/HCPCS: 36415; 71046; 80053; 85025; 85610

== ENCOUNTER 2019-05-11 17:14 | Inpatient (IN) | payer MEDICARE, MEDICAID, SELFPAY ==
[2019-05-11] VITALS (7 sets, daily range): BP systolic 133–153; BP diastolic 86–93; PULSE 80–89; RESP 20–22; TEMP 36.1–37.7; O2SAT 93
--- NOTE | ~2019-05-11 | XR_ITS ---
EXAMINATION: XR chest 1V portable EXAM DATE: 05/11/2019 17:58 INDICATION: Shortness of breath. History of COPD. TECHNIQUE: Portable AP frontal chest x-ray was obtained. Comparison is made to prior examination from 05/01/2019. FINDINGS: There is chronic severe hyperinflation which can be seen with chronic obstructive pulmonary disease (a clinical diagnosis of functional impairment), but is not diagnostic of it. Evidence of chronic bullous disease, regions of scarring and right basilar granulomas. No confluent consolidation , pneumothorax or pleural effusion suspected. There are mild bony degenerative changes. Narrow cardia c silhouette from hyperinflated lungs. There is no significant interval change. IMPRESSION: 1. No acute cardiopulmonary findings. 2. Chronic emphysema, hyperinflation. Reviewed, dictated and finalized at location A. ATIONS TECHNICIAN
--- NOTE | 2019-05-11 17:46 | ECG_ITS ---
Measurements Intervals [place] Rate: 82 P: 85 OR: 183 QRS: 79 QRSD: 87 T: 76 QT: 361 QTc: 422 Interpretive Statements SINUS RHYTHM POSSIBLE RIGHT ATRIAL ENLARGEMENT POSSIBLE LEFT ATRIAL ENLARGEMENT DELAYED PRECORDIAL R/S TRANSITION BASELINE ARTIFACT- I, II, III, AVR, AVL, V1-V6 BORDERLINE ECG Electronically Signed On 05-12-2019 8:59:18 HOSPITALITY INTERN by Ryan Garcia D.O.
--- NOTE | 2019-05-11 17:50 | ED.SOB ---
HPI - SOB/Dyspnea General Chief Complaint: Shortness of Breath/Dyspnea Stated Complaint: AMB Time Seen by Provider: 05/11/19 17:28 Source: patient Mode of arrival: EMS Limitations: clinical condition History of Present Illness HPI Narrative: José Miguel is a very pleasant 79-year-old male patient. He is brought to the emergency room from home by ambulance. He states that he has had shortness of breath for the past 2 weeks. He states that his daughter made him come to the emergency room. José Miguel has history of COPD. He is a former smoker. He quit smoking 10 years ago. His primary care physician is Dr. Gómez. His sidewalk repairer is Dr. Singleton. José Miguel uses 10 L of oxygen 247 at home. EMS gave him a nebulizer treatment and put him on 20 L. when he came to the emergency room air saturating at 94% and his respirations were 22. Pulse is 85 and blood pressure is 153/86 mmHg. His temperature is 99.7 ? F. he says he has a chronic nonproductive cough. He denies any chest pain. He has history of CAD. He had 1 coronary stent. This was done at [facility]. He has had endovascular repair of an abdominal aortic aneurysm at [facility] about 2 or 3 years ago. He has had a PE in the past. He has history of arthritis. He has had cataract in at least 1 I but has not had any surgery. Prednisone is listed as an allergy for him but he has taking prednisone 10 mg daily. History of hypercholesterolemia and restless leg syndrome. He is on chronic warfarin anticoagulation. MD elicited complaint: shortness of breath Pertinent past history: COPD and other ( CAD PVD) Onset (ago): week(s) ( 2 weeks) Context: other Timing: constant Severity: moderate Exacerbating factors: exertion Relieving factors: oxygen and bronchodilators Known history of: COPD Associated symptoms: other ( please see HPI narrative for details) Treatment prior to arrival: oxygen and bronchodilator Related Data Home oxygen amount: 4 liters ( 10 L, see HPI narrative) Home Medications Medication Instructions Recorded Confirmed Florastor 250 mg PO BID 04/19/19 05/11/19 Mucinex DM 1 tablet PO Q12H 04/19/19 05/11/19 ascorbic acid (vitamin C) [Vitamin 500 mg PO DAILY 04/19/19 05/11/19 C] aspirin [Aspirin Low Dose] 81 mg PO DAILY 04/19/19 05/11/19 cholecalciferol (vitamin D3) 125 mcg PO DAILY 04/19/19 05/11/19 ipratropium-albuterol 3 ml INHALATION Q4H PRN 04/19/19 05/11/19 benzonatate 200 mg PO TID PRN 05/11/19 05/11/19 budesonide 2 ml INHALATION BID 05/11/19 05/11/19 metoprolol tartrate 25 mg PO BID 05/11/19 05/11/19 montelukast 10 mg PO DAILY 05/11/19 05/11/19 prednisone 10 mg PO DAILY 05/11/19 05/11/19 roflumilast [Daliresp] 500 mcg PO DAILY 05/11/19 05/11/19 ropinirole 0.5 - 1 mg PO HS 05/11/19 05/11/19 simvastatin 40 mg PO HS 05/11/19 05/11/19 umeclidinium-vilanterol [Anoro 1 inh INHALATION DAILY 05/11/19 05/11/19 Ellipta] warfarin 4 mg PO HS 05/11/19 05/11/19 Allergies Allergy/AdvReac Type Severity Reaction Status Date / Time prednisone Allergy Hives Verified 04/19/19 17:10 Review of Systems Review of Systems: All systems reviewed & are unremarkable except as noted in HPI and below Constitutional: Constitutional: Reports as per HPI, Denies chills, Reports fever(s) and Reports weakness Eyes: Eyes: Reports as per HPI, Reports no additional eye complaints and Denies change in vision ENT: Reports system reviewed and no additional complaints, except as documented, Denies dizziness, Denies epistaxis and Denies sore throat Cardiovascular: Cardiovascular: Reports as per HPI, Denies chest pain and Denies radiating jaw, neck or arm pain Respiratory: Respiratory: Reports as per HPI, Reports no additional respiratory complaints, Reports cough and Reports dyspnea Gastrointestinal: Gastrointestinal: Reports as per HPI, Reports no additional gastrointestinal complaints, Denies abdominal pain, Denies diarrhea and Denies vomiting Genitourinary: Genitourinary: Reports no addit
[2019-05-11 18:05] LABS: Basophils Absolute Auto 0.02 K/mm3 (0.00-0.10); Basophils Percent Auto 0.3 % (0.0-1.0); Eosinophils Absolute Auto 0.15 K/mm3 (0.02-0.50); Eosinophils Percent Auto 1.9 % (1.0-6.0); Hematocrit 44.7 % (37.0-46.0); Hemoglobin 14.3 g/dL (12.4-15.3); Immature Granulocyte Absolute 0.07 K/mm3 (0.00-0.00); Immature Granulocyte Percent A 0.9 % (0.0-0.0); Lymphocytes Absolute Auto 0.22 K/mm3 (1.10-4.50); Lymphocytes Percent Auto 2.8 % (18.0-42.0); Mean Corpuscular Hemoglobin 31.9 pg (27.0-31.0); Mean Corpuscular Volume 99.8 fL (78.0-102.0); Mean Platelet Volume 8.8 fl (8.7-11.0); Monocytes Absolute Auto 0.17 K/mm3 (0.10-0.90); Monocytes Percent Auto 2.1 % (2.0-11.0); Neutrophils Absolute Auto 7.3 K/mm3 (1.7-7.2); Platelet Count Result 200 K/mm3 (150-420); Red Blood Count 4.48 M/mm3 (4.70-6.10); Red Cell Distribution Width 13.7 % (11.6-14.4)
[2019-05-11 18:10] LABS: Base Excess ABG 3.7 mmol/L (0-2); Device NASAL CANNULA; HCO3 ABG 29.9 mmol/L (23-29); Modified Allen's Test Pass; Oxygen Content ABG 17.8 %vol (16.0-22.0); Oxygen Saturation ABG 89.9 % (95-97); PCO2 ABG 51.1 mmHg (35-45); PO2 ABG 60.1 mmHg (75-85); Site Drawn RIGHT RADIAL; Total Hemoglobin 14.2 g/dL; pH ABG 7.39 (7.35-7.45)
[2019-05-11 18:26] LABS: Alanine Aminotransferase 23 U/L (16-63); Albumin Level 2.9 g/dL (3.4-5.0); Alkaline Phosphatase 61 U/L (46-116); Anion Gap 10.4 mmol/L (7-16); Aspartate Amino Transferase 15 U/L (15-37); Bilirubin,Total 0.4 mg/dL (0.00-1.00); Blood Urea Nitrogen 23 mg/dL (7-18); Calcium 10.2 mg/dL (8.5-10.1); Carbon Dioxide 36 mmol/L (21-32); Chloride 105 mmol/L (98-108); Estimated CRCL calculation 37 ml/min; Estimated Glomerular Filt Rate 56; Glucose 120 mg/dL (70-99); Magnesium 2.4 mg/dL (1.8-2.4); Osmolality Calculated 308 mOsm/kg (285-295); Potassium 4.4 mmol/L (3.5-5.1); Sodium 147 mmol/L (136-145); Total Protein 7.4 g/dL (6.4-8.2)
[2019-05-11 18:27] LABS: Influenza Control Valid (Valid)
[2019-05-11 18:27] LABS: INR 4.7; Partial Thromboplastin Time 51.6 SEC (22.3-31.6); Prothrombin Time 46.1 Seconds (9.64-11.0); Troponin I < 0.02 ng/mL (0.00-0.056)
[2019-05-11 18:28] LABS: D Dimer 1.61 mg/L (0.19-0.50); Lactic Acid 1.5 mmol/L (0.4-2.0)
[2019-05-11 18:34] LABS: BNP 136 pg/mL (0-100)
--- NOTE | 2019-05-11 19:18 | PC.NURSE ---
191 OBS ROOM REQUESTED FROM REID CABRERA RN. ROOM 209 PROVIDED. REGISTRATION NOTIFIED.
--- NOTE | 2019-05-11 20:10 | PC.NURSE ---
Patient sitting on side of bed. Respirations labored on O2 @ 10 lpm/nc. Changing patient from his t-shirt to hospital gown with assistance made him very SOB and it takes several minutes for his respirations to ease. Daughter answering some of the admission questions due to talking a lot also makes patient SOB easily. Once patient was settled and just sitting on side of bed doing nothing, his breathing eased and became even and unlabored. Call light in reach.
[2019-05-11] MEDS: IPRATROPIUM 0.5 MG/ALBUTEROL SULFATE 2.5 MG AMPUL.NEB 3 ML INHALATION (20:29)
[2019-05-11] MEDS: SIMVASTATIN 10 MG TABLET 40 MG PO (20:47)
--- NOTE | 2019-05-11 21:30 | PC.NURSE ---
Ceftriaxone finished infusing to site in LAC. Patient tolerated well. Patient now sitting in bed with HOB elevated. O2 continues @ 10 lpm/nc. Patient requested/given snack. Call light in reach.
--- NOTE | 2019-05-11 22:35 | PC.NURSE ---
Patient resting comfortably. Respirations even and unlabored. O2 continues @ 10 lpm/nc. Patient denies pain/complaints/needs @ this time. Call light in reach.
[2019-05-11 22:40] LABS: Add Urine Microscopic? YES; Appearance Urine Clear (Clear); Bilirubin Urine Negative (Negative); Blood Urine Negative (Negative); Color Urine Yellow (Yellow); Glucose Urine UA Negative (Negative); Ketones Urine Negative (Negative); Leukocyte Esterase Ur Negative LEU/UL (Negative); Nitrate Urine Negative (Negative); Protein Urine Trace (Negative); Specific Grav Ur 1.025 (1.010-1.020); Urobilinogen Urine 0.2 mg/dL (0.2-1.0)
[2019-05-11 22:48] LABS: Bacteria Urine Trace /hpf; Mucus Urine Few /lpf; RBC Urine 0-2 /hpf (0-2); Squamous Epithelial Cell Urine None seen /hpf (Few); WBC Urine 0-3 /hpf (0-3)
--- NOTE | 2019-05-11 23:10 | PC.NURSE ---
Patient appears to be sleeping by the rise and fall of his chest with HOB elevated. Respirations even and unlabored. O2 continues @ 10 lpm/nc. No distress noted. Call light in reach.
[2019-05-12] VITALS (15 sets, daily range): BP systolic 94–133; BP diastolic 51–87; PULSE 24–91; RESP 20–80; TEMP 36.1–36.6; O2SAT 91–96; BMI 18.8
--- NOTE | 2019-05-12 00:10 | PC.NURSE ---
Patient awakened easily for VS to be taken. VSS. Respirations even and unlabored with O2 on @ 10 lpm/nc. Patient denies pain/complaints/needs @ this time. No distress noted. Call light in reach.
--- NOTE | 2019-05-12 00:40 | ADMGEN ---
This patient, José Miguel Diaz, was admitted to 2nd Floor Room 209-1. Patient/family oriented to hospital policies and general routines including ID bracelet, bed and alarms, visiting hours, pain management, procedures, bathroom and other care routines, personal items, smoking policy, room service/diet, and visiting hours. Valuables include glasses, watch, silver colored ring, clothing. Information on how to activate the Rapid Response Team has been discussed. Patient/Family are encouraged to report perceived risks to care and to ask questions if they do not understand what they are told or what they should do.
--- NOTE | 2019-05-12 01:15 | PC.NURSE ---
Patient appears to be sleeping by the rise and fall of his chest. Respirations even and unlabored on O2 @ 10 lpm/nc. No distress noted. Call light in reach.
--- NOTE | 2019-05-12 03:07 | PC.NURSE ---
Patient sitting on side of bed when nurse checked on him. Patient says his breathing has been pretty good. Patient continues on O2 @ 10 lpm/nc. Denies pain/complaints/needs @ this time. No distress noted. Call light in reach.
[2019-05-12] MEDS: IPRATROPIUM 0.5 MG/ALBUTEROL SULFATE 2.5 MG AMPUL.NEB 3 ML INHALATION ×3 (04:22→17:48)
--- NOTE | 2019-05-12 04:29 | PC.NURSE ---
Patient awakened easily for 0400 VS. O2 continues @ 10 lpm/nc. SpO2 only @ 85%. Respirations remained even and unlabored. Instructed patient on pursed lip breathing and SpO2 came up to 91%. Patient denied feeling SOB. Duoneb given and patient coughed several times and SpO2 increased to 98%. Patient denied pain/complaints/needs. No distress noted. Call light in reach.
[2019-05-12 07:03] LABS: Basophils Absolute Auto 0.02 K/mm3 (0.00-0.10); Basophils Percent Auto 0.3 % (0.0-1.0); Eosinophils Absolute Auto 0.35 K/mm3 (0.02-0.50); Eosinophils Percent Auto 5.3 % (1.0-6.0); Hematocrit 40.5 % (37.0-46.0); Hemoglobin 12.7 g/dL (12.4-15.3); Immature Granulocyte Absolute 0.06 K/mm3 (0.00-0.00); Immature Granulocyte Percent A 0.9 % (0.0-0.0); Lymphocytes Absolute Auto 0.41 K/mm3 (1.10-4.50); Lymphocytes Percent Auto 6.2 % (18.0-42.0); Mean Corpuscular HGB Conc 31.4 g/dL (32.0-36.0); Mean Corpuscular Hemoglobin 31.4 pg (27.0-31.0); Mean Corpuscular Volume 100.2 fL (78.0-102.0); Mean Platelet Volume 8.8 fl (8.7-11.0); Monocytes Absolute Auto 0.33 K/mm3 (0.10-0.90); Neutrophils Absolute Auto 5.4 K/mm3 (1.7-7.2); Neutrophils Percent Auto 82.3 % (50.0-70.0); Platelet Count Result 160 K/mm3 (150-420); Red Blood Count 4.04 M/mm3 (4.70-6.10); Red Cell Distribution Width 13.8 % (11.6-14.4); White Blood Count 6.6 K/mm3 (4.8-10.8)
[2019-05-12 07:31] LABS: INR 4.5; Prothrombin Time 44.1 Seconds (9.64-11.0)
[2019-05-12 07:31] LABS: Alanine Aminotransferase 19 U/L (16-63); Albumin Level 2.5 g/dL (3.4-5.0); Alkaline Phosphatase 50 U/L (46-116); Aspartate Amino Transferase 13 U/L (15-37); Bilirubin,Total 0.3 mg/dL (0.00-1.00); Blood Urea Nitrogen 23 mg/dL (7-18); Calcium 9.1 mg/dL (8.5-10.1); Carbon Dioxide 34 mmol/L (21-32); Chloride 107 mmol/L (98-108); Estimated CRCL calculation 43 ml/min; Estimated Glomerular Filt Rate > 60; Glucose 88 mg/dL (70-99); Osmolality Calculated 306 mOsm/kg (285-295); Sodium 147 mmol/L (136-145); Total Protein 6.3 g/dL (6.4-8.2)
[2019-05-12] MEDS: MONTELUKAST SODIUM 10 MG TABLET PO (09:40)
[2019-05-12] MEDS: ASCORBIC ACID 500 MG TABLET PO (09:40)
[2019-05-12] MEDS: CHOLECALCIFEROL 1,000 UNIT TABLET 1000 UNITS PO (09:40)
[2019-05-12] MEDS: METOPROLOL TARTRATE 25 MG TABLET PO ×2 (09:40→17:16)
[2019-05-12] MEDS: ASPIRIN 81 MG ENTERIC TABLET PO (09:40)
[2019-05-12] MEDS: predniSONE 10 MG TABLET PO (09:41)
[2019-05-12] MEDS: SACCHAROMYCES BOULARDII 250 MG CAPSULE PO ×2 (09:48→17:16)
--- NOTE | 2019-05-12 09:53 | PHAR ---
05/11/19: VERIFIED PT.'S HOME MED DALIRESP 500MCG TABLET. [facility] DOES NOT STOCK. TLS
[2019-05-12] MEDS: ROFLUMILAST 500 MCG TABLET PO (09:56)
[2019-05-12] MEDS: ACETAMINOPHEN 325 MG TABLET 650 MG PO (11:54)
[2019-05-12] MEDS: methylPREDNISolone SOD SUCC 125 MG VIAL IV PUSH (12:39)
[2019-05-12] MEDS: BENZONATATE 100 MG CAPSULE 200 MG PO ×2 (12:39→17:17)
[2019-05-12] MEDS: BUDESONIDE RESPULE NEB 0.5 MG/2 ML AMP 1 MG INHALATION ×2 (13:23→17:49)
--- NOTE | 2019-05-12 14:27 | PM.IMHP ---
H&P: HPI History of Present Illness Chief complaint: AMB <SARAH Thorpe-Dominga - Last Filed: 05/12/19 15:40> Narrative: José Miguel Diaz is a 79 year old male that presented to the ED yesterday with shortness of breath and dyspnea. Patient has a past medical history end-stage COPD, CAD, AAA repair, and pulmonary embolism. Dr. Singleton is patient's chemical equipment sales engineer. patient was previously admitted 04/20/2019 for community-acquired pneumonia. According to patient and daughter he has been fatigued Week and short of breath since his discharge. According to daughter Dr. Singleton commercial real estate assistant has adjusted his tubing to his compressor at home , which she thinks could have been the problem. Patient uses 10 L nasal of home oxygen ,according to his daughter he has had to use 20 L within last 2 weeks. He does have a nonproductive cough, patient states he can not cough up the mucus. vital signs are 115/51, 90, 20, 36.6, 92% on 10 L nasal cannula patient is being admitted for COPD excerbation. while patient was in the chest x-ray was indicating chronic emphysema EKG noted sinus blood gases pH 7.39 pCO2 51.1 a PO2 60.1 bicarb 29.9. Patient denies CP, palpitation, extremity numbness, lightheadness, dizziness, constipation, diarrhea, or chills or fever. we will treat the patient with antibiotics, Solu-Medrol, cough suppressants, decongestion, oxygen therapy, in breathing treatment. This visit Dr. Martins discussed patient's poor prognosis and explained due to patient's poor prognosis and end-stage COPD patient being intubated is possible. <SARAH Thorpe-Dominga - Last Filed: 05/12/19 15:40> Review of Systems Review of Systems: Narrative: Constitutional: Constitutional: Denies chills and Denies fever(s), fatigue Eyes: Eyes: Denies no additional eye complaints ENT: Denies nasal congestion and Denies sore throat Cardiovascular: Denies chest pain, Denies syncope, Reports dyspnea and Reports dyspnea on exertion Respiratory: Reports no additional respiratory complaints, Reports chest congestion, Reports cough, Reports, Reports dyspnea and Reports dyspnea on exertion Gastrointestinal: Denies abdominal pain, Denies diarrhea and Denies vomiting Genitourinary: Denies urinary incontinence Musculoskeletal: muscle weakness Neurologic: Denies syncope Psychiatric: Denies anxiety and Denies depression Hematologic/Lymphatic: Reports easy bruising <ARACELI Thorpe - Last Filed: 05/12/19 15:40> [facility] Family History Family History: Family History (Updated 05/11/19 @ 18:00 by Forrest Bang MD) Mother , mother of natural causes at age 83 No problems noted. Father , father of lung cancer at age 55 No problems noted. <ARACELI Thorpe - Last Filed: 05/12/19 15:40> Social History Social History: Social History Smoking packs per day: 1 Smoking cigarettes per day: 20.0 Years smoked: 55 Smoking pack-years: 55.00 Smoking status: Former smoker Tobacco type: cigarettes Smokeless tobacco user: chewing tobacco Second hand tobacco smoke exposure: Yes Alcohol intake: former Substance use: never Additional living arrangements comments: Daughter lives next door, makes meals, checks on him multiple times/day. of spouse 1 year ago. Gender identity (if verbalized by the patient): Male Spiritual care concerns: No Agree to blood products: Yes <ARACELI Thorpe - Last Filed: 05/12/19 15:40> Meds Home Medications and Allergies Home medications: Home Medications Medication Instructions Recorded Confirmed Type Florastor 250 mg PO BID 04/19/19 05/11/19 History Mucinex DM 1 tablet PO Q12H 04/19/19 05/11/19 History ascorbic acid (vitamin C) [Vitamin 500 mg PO DAILY 04/19/19 05/11/19 History C] aspirin [Aspirin Low Dose] 81 mg PO DAILY 04/19/19 05/11/19 History cholecalciferol
--- NOTE | 2019-05-12 20:52 | PM.EVENT ---
Event Note Event Note Event Note: I had deeq-hn-faqm time with this patient and reviewed Cl Hoffman NP's documentation, treatment plan, and medical decision making. Pt had been on 20 l/min, now back down to baseline of 10 on Rocephin, steroids and Rocephin. Plan is to return close to baseline and d.c. home. I spoke with pt. and daughter about the possibility at some point he may need to be intubated and put on a respirator. In some cases pt's can't be weaned from the respirator. Pt is full code. I encouraged family and pt. to discuss this further with Dr. Singleton.
[2019-05-12] MEDS: SIMVASTATIN 10 MG TABLET 40 MG PO (20:54)
[2019-05-13] VITALS (12 sets, daily range): BP systolic 102–120; BP diastolic 54–80; PULSE 72–88; RESP 16–26; TEMP 36.3–36.9; O2SAT 95–99
[2019-05-13] MEDS: IPRATROPIUM 0.5 MG/ALBUTEROL SULFATE 2.5 MG AMPUL.NEB 3 ML INHALATION ×4 (00:01→17:27)
[2019-05-13] MEDS: methylPREDNISolone SOD SUCC 125 MG VIAL IV PUSH ×3 (00:01→14:21)
[2019-05-13 05:36] LABS: Hematocrit 39.7 % (37.0-46.0); Hemoglobin 12.2 g/dL (12.4-15.3); Mean Corpuscular HGB Conc 30.7 g/dL (32.0-36.0); Mean Corpuscular Volume 100.8 fL (78.0-102.0); Mean Platelet Volume 9.2 fl (8.7-11.0); Platelet Count Result 165 K/mm3 (150-420); Red Blood Count 3.94 M/mm3 (4.70-6.10); Red Cell Distribution Width 13.5 % (11.6-14.4); White Blood Count 3.9 K/mm3 (4.8-10.8)
[2019-05-13 06:02] LABS: BNP 144 pg/mL (0-100)
[2019-05-13] MEDS: BUDESONIDE RESPULE NEB 0.5 MG/2 ML AMP 1 MG INHALATION (06:02)
[2019-05-13 06:07] LABS: Alanine Aminotransferase 20 U/L (16-63); Albumin Level 2.4 g/dL (3.4-5.0); Alkaline Phosphatase 50 U/L (46-116); Aspartate Amino Transferase 13 U/L (15-37); Bilirubin,Total 0.3 mg/dL (0.00-1.00); Blood Urea Nitrogen 25 mg/dL (7-18); Carbon Dioxide 37 mmol/L (21-32); Chloride 106 mmol/L (98-108); Estimated CRCL calculation 42 ml/min; Estimated Glomerular Filt Rate > 60; Glucose 138 mg/dL (70-99); Magnesium 2.2 mg/dL (1.8-2.4); Osmolality Calculated 310 mOsm/kg (285-295); Sodium 147 mmol/L (136-145); Total Protein 6.4 g/dL (6.4-8.2)
[2019-05-13 07:31] LABS: Calcium 9.2 mg/dL (8.5-10.1)
[2019-05-13] MEDS: ROFLUMILAST 500 MCG TABLET PO (09:34)
[2019-05-13] MEDS: SACCHAROMYCES BOULARDII 250 MG CAPSULE PO ×2 (09:34→16:59)
[2019-05-13] MEDS: BENZONATATE 100 MG CAPSULE 200 MG PO ×3 (09:35→16:58)
[2019-05-13] MEDS: CHOLECALCIFEROL 1,000 UNIT TABLET 5000 UNITS PO (09:35)
[2019-05-13] MEDS: predniSONE 10 MG TABLET PO (09:36)
[2019-05-13] MEDS: ASPIRIN 81 MG ENTERIC TABLET PO (09:36)
[2019-05-13] MEDS: ASCORBIC ACID 500 MG TABLET PO (09:36)
[2019-05-13] MEDS: MONTELUKAST SODIUM 10 MG TABLET PO (09:36)
[2019-05-13] MEDS: METOPROLOL TARTRATE 25 MG TABLET PO ×2 (09:36→16:59)
[2019-05-13 10:58] LABS: INR 3.1; Prothrombin Time 30.4 Seconds (9.64-11.0)
--- NOTE | 2019-05-13 16:36 | PM.DS ---
DS: Diagnosis Admitting Diagnosis Admitting Diagnosis: Chronic obstructive pulmonary disease with (acute) exacerbation <Gisele Clancy NP - Last Filed: 05/13/19 18:32> Discharge Diagnosis (1) Chronic obstructive pulmonary disease with acute exacerbation: Code(s): J44.1 - Chronic obstructive pulmonary disease with (acute) exacerbation <Gisele Clancy NP - Last Filed: 05/13/19 18:32> Status: Acute <Gisele Clancy NP - Last Filed: 05/13/19 18:32> Assessment and Plan: chest x-ray indicates chronic emphysema blood gas pH 7.39 pCO2 51.1 PO2 60.1 bicarb 29.9 at admission patient's senior data modeler is Dr. Singleton will start antibiotics Rocephin, scheduled breathing treatment, Solu-Medrol, decongested, cough suppressant and continue supplementary oxygen Discharged on above, as well as Antibiotic and Prenisone Taper. patient was stable and tolerated his Solu-Medrol doses well. 95, 98, 96% SpO2 levels WNL on 10 L O2 instructed family, daughter, and patient that he will need much more help at home because as the patient stated himself Just standing to use the urinal, exhausts me. <Gisele Clancy NP - Last Filed: 05/13/19 18:32> (2) DVT prophylaxis: Code(s): Z29.9 - Encounter for prophylactic measures, unspecified <Gisele Clancy NP - Last Filed: 05/13/19 18:32> Status: Acute <Gisele Clancy NP - Last Filed: 05/13/19 18:32> Assessment and Plan: continue warfarin INR within goal range of 2-3 today <Gisele Clancy NP - Last Filed: 05/13/19 18:32> (3) Abnormal echocardiogram: Code(s): R93.1 - Abnormal findings on diagnostic imaging of heart and coronary circulation <Gisele Clancy NP - Last Filed: 05/13/19 18:32> Status: Acute <Gisele Clancy NP - Last Filed: 05/13/19 18:32> Assessment and Plan: * last ECHO 02/12/2017 and showed LV size normal, LVEF 60-65%. Right Ventricle is moderately enlarged and RVfxn. severely depressed. Moderate tricuspid regurg. Moderate pulmonary HTN with peak PA pressure 53 mmHg. recent echo indicates-Dilated inferior vena cava with >50% collapse upon inspiration consistent with elevated right atrial pressure, 10 mmHg. usually a sign of SIGNIFICANT tricuspid regurgitation and/or tricuspid stenosis. May benefit from Sildenafil. Needs BUSINESS PROCESS ASSOCIATE consulation and F/U soon. Emphasized this to patient and daughter/POA. will follow-up with PCP <Gisele Clancy NP - Last Filed: 05/13/19 18:32> (4) Pulmonary embolus: Code(s): I26.99 - Other pulmonary embolism without acute cor pulmonale <Gisele Clancy NP - Last Filed: 05/13/19 18:32> Status: Acute <Gisele Clancy NP - Last Filed: 05/13/19 18:32> Assessment and Plan: continue warfarin INR within goal range of 2-3 today tolerating home O2 levels and showing no worsening and no abnormal difficulty at this time. he has returned to baseline respiratory status at this time (per my history of evaluating him and his daughter/POA as well) <Gisele Clancy NP - Last Filed: 05/13/19 18:32> (5) CAD (coronary artery disease): Code(s): I25.10 - Atherosclerotic heart disease of [place] coronary artery without angina pectoris <Gisele Clancy NP - Last Filed: 05/13/19 18:32> Status: Acute <Gisele Clancy NP - Last Filed: 05/13/19 18:32> Assessment and Plan: continue statins no emergent interventions advised at this time continue warfarin no chest pain, no worsening SOB. , no numnbess or tingling. <Gisele Clancy NP - Last Filed: 05/13/19 18:32> DS: Summary Time Spent with Patient Time attestation: Total time spent providing and/or coordinating discharge services:>60 min <Gisele Clancy NP - Last Filed: 05/13/19 18:32> Exam Narrative: Exam Narrative: General: A well-developed, well-nourished male sitting up in bed no acute distress. HEENT: Normocephalic, atraumatic.
[2019-05-13] MEDS: BUDESONIDE RESPULE NEB 0.5 MG/2 ML AMP INHALATION (17:27)
== END 2019-05-13 18:15 | disposition home or self-care (01) | DRG 190 ==
LOC: CHSED 19:08 → CHS2ND 19:18
PROVIDERS: Nurse Practitioner; Admitting Provider Surgery; Emergency Provider Surgery; PCP Internal Medicine; Visit Provider Surgery
DX: J44.1 Chronic obstructive pulmonary disease with (acute) exacerbation (principal); I26.99 Other pulmonary embolism without acute cor pulmonale; I25.10 Atherosclerotic heart disease of native coronary artery without angina pectoris; Z87.891 Personal history of nicotine dependence
CPT/HCPCS: 36415; 36600; 71045; 80053; 81001; 82805; 83605; 83735; 83880; 84484; 85025; 85027; 85380; 85610; 85730; 87040; 87804; 93005; 94640; 96365; 99285; A9270; G0378; J0696; J2930; J7512

== ENCOUNTER 2019-06-02 14:16 | Outpatient (CLI) | payer MEDICARE, MEDICAID, SELFPAY ==
--- NOTE | ~2019-06-02 | XR_ITS ---
XR chest 2V 06/02/2019 14:36 Indication: Hemoptysis. Cough and shortness of breath. Procedure: PA and lateral views of the chest Comparison: Comparison to multiple prior studies sequentially, with oldest reviewed study dated 11/2019. Findings: There is developing left upper lobe airspace disease, compatible with pneumonia. There are emphysematous changes. Calcified granuloma right lower lobe. Heart size normal. Impression: 1: Developing left upper lobe airspace disease, compatible with pneumonia. Reviewed, dictated and finalized at location A. Impression: 1: Developing left upper lobe airspace disease, compatible with pneumonia.
== END 2019-06-02 14:17 | disposition home or self-care (01) ==
PROVIDERS: PCP Internal Medicine; Visit Provider Internal Medicine Pulmonary Disease
DX: R04.2 Hemoptysis (principal); J18.9 Pneumonia, unspecified organism
CPT/HCPCS: 71046

== ENCOUNTER 2019-06-06 20:09 | Inpatient (IN) | payer MEDICARE, MEDICAID, SELFPAY ==
[2019-06-06] VITALS (9 sets, daily range): BP systolic 83–114; BP diastolic 51–73; PULSE 88–108; RESP 20–30; TEMP 36.7–36.8; O2SAT 90–96; BMI 19.3
--- NOTE | ~2019-06-06 | XR_ITS ---
EXAMINATION: XR chest 1V portable DATE: 06/06/2019 20:43 INDICATION: Dyspnea. TECHNIQUE: A single frontal view of the chest was obtained. COMPARISON: Chest 2 views 06/02/2019, chest CT 04/19/2019 FINDINGS: There are are lucencies in the lungs, consistent with severe emphysema. A calcified right l fermin nodule is consistent with old granulomatous disease. There are worsened airspace opacities in the mid and lower lung zones, left worse than right. No pleural effusion or pneumothorax. The heart size is normal. IMPRESSION: 1. Worsened airspace opacities in the mid and lower lung zones, left worse than right, consistent wit h pneumonia. 2. Severe emphysema. Reviewed, dictated and finalized at location A. IMPRESSION: 1. Worsened airspace opacities in the mid and lower lung zones, left worse than right, consistent with pneumonia. 2. Severe emphysema.
[2019-06-06] MEDS: IPRATROPIUM 0.5 MG/ALBUTEROL SULFATE 2.5 MG AMPUL.NEB 3 ML INHALATION (20:25)
[2019-06-06] MEDS: methylPREDNISolone SOD SUCC 125 MG VIAL IV PUSH (20:25)
--- NOTE | 2019-06-06 20:30 | ECG_ITS ---
Measurements Intervals [place] Rate: 105 P: 81 [place]: 146 QRS: 80 QRSD: 85 T: 56 QT: 312 QTc: 414 Interpretive Statements SINUS TACHYCARDIA POSSIBLE LEFT ATRIAL ENLARGEMENT BASELINE ARTIFACT- II, III, AVR, V1-V6 ABNORMAL ECG Electronically Signed On 06-07-2019 7:52:59 CDT by Ryan Garcia D.O.
[2019-06-06 20:44] LABS: Hematocrit 24.6 % (37.0-46.0); Hemoglobin 7.4 g/dL (12.4-15.3); Mean Corpuscular HGB Conc 30.1 g/dL (32.0-36.0); Mean Corpuscular Volume 102.9 fL (78.0-102.0); Mean Platelet Volume 9.3 fl (8.7-11.0); Platelet Count Result 225 K/mm3 (150-420); Red Blood Count 2.39 M/mm3 (4.70-6.10); Red Cell Distribution Width 15.1 % (11.6-14.4); White Blood Count 10.2 K/mm3 (4.8-10.8)
--- NOTE | 2019-06-06 20:49 | PC.NURSE ---
Pt mental status improved since arrival. pt having appropriate conversations with staff. Pt breathing efforts improved.
[2019-06-06 20:56] LABS: D Dimer 0.99 mg/L (0.19-0.50); Troponin I < 0.02 ng/mL (0.00-0.056)
[2019-06-06 21:05] LABS: Lactic Acid 10.4 mmol/L (0.4-2.0)
[2019-06-06 21:19] LABS: Base Excess ABG -0.5 mmol/L (0-2); Carboxyhemoglobin 0.4 % (0-1.5); HCO3 ABG 23.8 mmol/L (23-29); Methemoglobin ABG 0.3 % (0-1.5); Oxygen Content ABG 12.4 %vol (16.0-22.0); Oxygen Saturation ABG 88.6 % (95-97); PCO2 ABG 37.5 mmHg (35-45); PO2 ABG 61.2 mmHg (75-85); Reduced Hemoglobin 11.3 % (0-1.5)
[2019-06-06 21:20] LABS: Device NON-REBREATHER MASK; Modified Allen's Test Pass; Site Drawn RIGHT RADIAL
[2019-06-06 21:21] LABS: pH ABG 7.42 (7.35-7.45)
[2019-06-06 21:22] LABS: BNP 313 pg/mL (0-100)
[2019-06-06] MEDS: SODIUM CHLORIDE 0.9% IV 1,000 ML 999 ML IV CONT ×2 (21:25→22:23)
[2019-06-06 21:30] LABS: Band Neutrophils Percent 2 % (0-6); Basophils Percent Manual 0 % (0-1); Eosinophils Percent Manual 1 % (1-6); Lymphocytes Absolute Manual 1.83 K/mm3 (1.1-4.5); Lymphocytes Percent Manual 18 % (18-44); Metamyelocytes Percent 0 %; Monocytes Percent Manual 2 % (3-9); Myelocytes Percent 8 %; Neutrophils Absolute Manual 7.03 K/mm3 (1.3-6.7); Neutrophils Percent Manual 67 % (46-73); Nucleated Red Blood Cells 7 %; Promyelocytes Percent 2 %; Total Cells Counted 100
[2019-06-06 21:35] LABS: INR > 18.7
--- NOTE | 2019-06-06 21:37 | PC.NURSE ---
EDP requesting pt be placed back on nonrebreather mask at 15 liters after reviewing abgs. explained to pt.
--- NOTE | 2019-06-06 21:46 | PC.NURSE ---
Pt approved for COVID-19 idph testing. [id number]
[2019-06-06 21:48] LABS: Alanine Aminotransferase 19 U/L (16-63); Albumin Level 2.3 g/dL (3.4-5.0); Alkaline Phosphatase 48 U/L (46-116); Aspartate Amino Transferase 21 U/L (15-37); Bilirubin,Total 0.4 mg/dL (0.00-1.00); Blood Urea Nitrogen 46 mg/dL (7-18); Calcium 8.8 mg/dL (8.5-10.1); Carbon Dioxide 24 mmol/L (21-32); Chloride 104 mmol/L (98-108); Estimated CRCL calculation 27 ml/min; Estimated Glomerular Filt Rate 38; Glucose 176 mg/dL (70-99); Osmolality Calculated 313 mOsm/kg (285-295); Sodium 144 mmol/L (136-145); Total Protein 5.7 g/dL (6.4-8.2)
[2019-06-06 21:49] LABS: Platelet Estimate Adequate (Adequate)
[2019-06-06] MEDS: PHYTONADIONE INJ 10 MG/ML AMP SUB-Q (21:56)
--- NOTE | 2019-06-06 22:09 | ED.SOB ---
HPI - SOB/Dyspnea General Chief Complaint: Shortness of Breath/Dyspnea Stated Complaint: Ambulance Source: patient, family and EMS Mode of arrival: ambulatory Limitations: no limitations History of Present Illness HPI Narrative: This is a 79-year-old male that lives at home, has a history of COPD, recent pneumonia history of right heart failure with pulmonary hypertension history of coronary artery disease pulmonary vascularity disease and history of pulmonary embolism presents via EMS with increased shortness of breath was having difficulty with some breathing was being bagged by EMS upon arrival but after a.m. placing the patient on a non-rebreather and with the breathing treatments the patient responded to those treatments and is has improved as far as respiratory status. Patient claims that he has some cough has coughed up some blood, has not passed any bright red blood per rectum no black tarry stools on upon presentation the patient was afebrile did have a cough has not the recent travel. MD elicited complaint: shortness of breath and cough Pertinent past history: COPD, congestive heart failure and pneumonia Onset (ago): day(s) Context: recent illness and anxiety Timing: constant Severity: severe Exacerbating factors: coughing and inspiration Relieving factors: oxygen and bronchodilators Known history of: COPD, congestive heart failure and recurrent pneumonia Associated symptoms: denies other symptoms Related Data Home oxygen amount: other (8- 10 liters) Home Medications Medication Instructions Recorded Confirmed ascorbic acid (vitamin C) [Vitamin 500 mg PO DAILY 04/19/19 06/06/19 C] aspirin [Aspirin Low Dose] 81 mg PO DAILY 04/19/19 06/06/19 cholecalciferol (vitamin D3) 125 mcg PO DAILY 04/19/19 06/06/19 ipratropium-albuterol 3 ml INHALATION Q4H PRN 04/19/19 06/06/19 Anoro Ellipta 1 inh INHALATION DAILY 05/11/19 06/06/19 Daliresp 500 mcg PO DAILY 05/11/19 06/06/19 benzonatate 200 mg PO TID PRN 05/11/19 06/06/19 budesonide 2 ml INHALATION BID 05/11/19 06/06/19 metoprolol tartrate 25 mg PO BID 05/11/19 06/06/19 montelukast 10 mg PO DAILY 05/11/19 06/06/19 ropinirole 0.5 - 1 mg PO HS 05/11/19 06/06/19 simvastatin 40 mg PO HS 05/11/19 06/06/19 warfarin 3 mg PO HS 05/11/19 06/06/19 prednisone 10 mg PO DAILY 06/06/19 06/06/19 Allergies Allergy/AdvReac Type Severity Reaction Status Date / Time dexamethasone Allergy throat Verified 05/12/19 12:09 swelling prednisone Allergy Hives Verified 04/19/19 17:10 Review of Systems Review of Systems: All systems reviewed & are unremarkable except as noted in HPI and below PMFSH Past Medical History Medical History (Updated 06/06/19 @ 22:19 by Avtar Capone MD) CAD (coronary artery disease) COPD (chronic obstructive pulmonary disease) (Unknown) Pulmonary embolus October 2018 PVD (peripheral vascular disease) Surgical History Surgical History History of repair of aneurysm of abdominal aorta Stented coronary artery Family History Family History Mother , mother of natural causes at age 83 No problems noted. Father , father of lung cancer at age 55 No problems noted. Social History Social History Smoking packs per day: 1 Smoking cigarettes per day: 20.0 Years smoked: 55 Smoking pack-years: 55.00 Smoking status: Former smoker Tobacco type: cigarettes Smokeless tobacco user: chewing tobacco Second hand tobacco smoke exposure: Yes Alcohol intake: former Substance use: never Additional living arrangements comments: Daughter lives next door, makes meals, checks on him multiple times/day. of spouse 1 year ago. Gender identity (if verbalized by the patient): Male Spiritual care concerns: No Agree to blood products: Yes
[2019-06-06 22:27] LABS: Influenza Control Valid (Valid)
--- NOTE | 2019-06-06 23:00 | ADMGEN ---
This patient, José Miguel Diaz, was admitted to 2nd Floor Room 212-1. Patient oriented to hospital policies and general routines including ID bracelet, bed and alarms, visiting hours, pain management, procedures, bathroom and other care routines, personal items, smoking policy, room service/diet, and visiting hours. Valuables list has been completed. Information on how to activate the Rapid Response Team has been discussed. Patient encouraged to report perceived risks to care and to ask questions if they do not understand what they are told or what they should do.
[2019-06-06] MEDS: SODIUM CHLORIDE 0.9% IV 250 ML 30 ML IV CONT (23:37)
[2019-06-07] VITALS (31 sets, daily range): BP systolic 93–127; BP diastolic 58–79; PULSE 81–141; RESP 24–34; TEMP 36.3–36.8; O2SAT 88–97
[2019-06-07] MEDS: methylPREDNISolone SOD SUCC 125 MG VIAL 60 MG IV PUSH ×5 (00:39→23:34)
[2019-06-07] MEDS: IPRATROPIUM 0.5 MG/ALBUTEROL SULFATE 2.5 MG AMPUL.NEB 3 ML INHALATION ×5 (00:40→23:33)
[2019-06-07 01:13] LABS: Add Urine Microscopic? YES; Appearance Urine Clear (Clear); Bilirubin Urine Negative (Negative); Blood Urine Negative (Negative); Color Urine Yellow (Yellow); Glucose Urine UA Negative (Negative); Ketones Urine Negative (Negative); Leukocyte Esterase Ur Negative (Negative); Nitrate Urine Negative (Negative); Protein Urine 1+ (Negative); RBC Urine None seen /hpf (0-2); Specific Grav Ur 1.025 (1.010-1.020); Urobilinogen Urine 0.2 mg/dL (0.2-1.0); pH Urine 5.5 (5.0-8.0)
[2019-06-07 01:14] LABS: Bacteria Urine None seen /hpf; Squamous Epithelial Cell Urine Rare /hpf (Few); WBC Urine None seen /hpf (0-3)
[2019-06-07] MEDS: SODIUM CHLORIDE 0.9% IV 1,000 ML 100 ML IV CONT ×2 (01:20→17:50)
--- NOTE | 2019-06-07 01:31 | PC.NURSE ---
0010 Attempted to insert a #16 espinoza catheter in pt without success. #16 Coude catheter was inserted with success and immediate return of clear, yellow urine. Urine sample collected and sent to lab.
[2019-06-07 06:19] LABS: Mean Corpuscular HGB Conc 30.1 g/dL (32.0-36.0); Mean Corpuscular Hemoglobin 30.6 pg (27.0-31.0); Mean Corpuscular Volume 101.6 fL (78.0-102.0); Mean Platelet Volume 9.4 fl (8.7-11.0); Platelet Count Result 170 K/mm3 (150-420); Red Blood Count 1.83 M/mm3 (4.70-6.10); Red Cell Distribution Width 15.6 % (11.6-14.4); White Blood Count 6.1 K/mm3 (4.8-10.8)
[2019-06-07 06:28] LABS: Hemoglobin 5.6 g/dL (12.4-15.3)
[2019-06-07 06:29] LABS: Hematocrit 18.6 % (37.0-46.0)
[2019-06-07 06:32] LABS: BNP 205 pg/mL (0-100); Prothrombin Time 68.8 Seconds (9.64-11.0)
--- NOTE | 2019-06-07 06:34 | PC.NURSE ---
Lab called with critical H&H results of 5.6 and 18.6.
[2019-06-07 06:38] LABS: INR 7.1
[2019-06-07 06:39] LABS: Lactic Acid Reflex 1.8 mmol/L (0.4-2.0)
[2019-06-07 06:42] LABS: Alanine Aminotransferase 17 U/L (16-63); Albumin Level 2.2 g/dL (3.4-5.0); Alkaline Phosphatase 43 U/L (46-116); Anion Gap 11.4 mmol/L (7-16); Aspartate Amino Transferase 20 U/L (15-37); Bilirubin,Total 0.3 mg/dL (0.00-1.00); Blood Urea Nitrogen 45 mg/dL (7-18); Calcium 7.8 mg/dL (8.5-10.1); Carbon Dioxide 29 mmol/L (21-32); Chloride 109 mmol/L (98-108); Estimated CRCL calculation 33 ml/min; Estimated Glomerular Filt Rate 49; Glucose 113 mg/dL (70-99); Osmolality Calculated 312 mOsm/kg (285-295); Potassium 4.4 mmol/L (3.5-5.1); Sodium 145 mmol/L (136-145); Total Protein 5.2 g/dL (6.4-8.2)
[2019-06-07 06:45] LABS: Band Neutrophils Percent 0 % (0-6); Basophils Percent Manual 0 % (0-1); Eosinophils Percent Manual 0 % (1-6); Lymphocytes Percent Manual 5 % (18-44); Metamyelocytes Percent 0 %; Monocytes Absolute Manual 0.12 K/mm3 (0.1-0.90); Monocytes Percent Manual 2 % (3-9); Myelocytes Percent 2 %; Neutrophils Absolute Manual 5.49 K/mm3 (1.3-6.7); Neutrophils Percent Manual 90 % (46-73); Nucleated Red Blood Cells 8 %; Platelet Estimate Adequate (Adequate); Promyelocytes Percent 1 %; Total Cells Counted 100
[2019-06-07 06:48] LABS: Magnesium 2.3 mg/dL (1.8-2.4)
--- NOTE | 2019-06-07 07:11 | PC.NURSE ---
[address] Capone to clarify medication orders for vitamin K. Orders clarified by Dr. Capone.
--- NOTE | 2019-06-07 07:14 | PC.NURSE ---
0657 Notified [facility] pharmacy of Dr. Capone's orders for vitamin K 10 mg to be given subQ and not IV. [facility] said they would make the adjustments on the order.
[2019-06-07] MEDS: PHYTONADIONE INJ 10 MG/ML AMP SUB-Q (07:27)
--- NOTE | 2019-06-07 07:50 | PC.NURSE ---
Patient taken down to CT via wheelchair, assisted to wheelchair with assist x1. Tolerated poorly. Patient very weak/shakey and SOB. Pt. recovered slowly from transfer.
--- NOTE | 2019-06-07 08:05 | PC.NURSE ---
Patient back from CT. Transfered from wheelchair to bed with 1 ast, transfered fair. Pt. very SOB. Took 10 minutes to recover. 02 sat 94-95% on 15 L02 on NRB. Pt. sitting up in bed with hob elevated. Nurse continue in room with patient, Getting ready to start blood transfusion.
[2019-06-07] MEDS: SODIUM CHLORIDE 0.9% IV 250 ML 30 ML IV CONT (08:10)
[2019-06-07] MEDS: ASCORBIC ACID 500 MG TABLET PO (08:12)
--- NOTE | 2019-06-07 09:23 | PM.IMHP ---
H&P: HPI History of Present Illness Chief complaint: Ambulance Narrative: José Miguel Diaz is a 79 year old male THAT PRESENTED TO THE ED ON 06/06/2019 CHIEF COMPLAINT SHORTNESS OF BREATH AND DYSPNEA. PATIENT HAS A PAST MEDICAL HISTORY OF END STAGE COPD, PNEUMONIA, CONGESTIVE HEART FAILURE, PULMONARY HYPERTENSION, CAD, PE. PATIENT WAS RECENTLY ADMITTED ON 04/20/2019 FOR PNEUMONIA COPD AND PNEUMONIA, WAS ALSO ADMITTED ON 05/12/2019 COPD EXACERBATION. ACCORDING TO PATIENT HIS CONDITION HAS NOT IMPROVED SINCE HIS DISCHARGE ON 06/08/2019. HE NOTED THAT HE CONTINUES TO HAVE WORSENING SHORTNESS OF BREATH WITH CONTINUOUS OXYGEN AT 10 L NASAL CANNULA. PATIENT ALSO NOTED THAT HIS SPUTUM WITH THE COUGH CONSISTED OF BRIGHT BLOOD HE ALSO NOTED THAT HIS STOOL WAS BLACK IN COLOR. PATIENT IS TAKING ANTICOAGULANT FOR HISTORY OF A PE THAT HE WAS DIAGNOSED WITH IN 2019. PATIENT'S HEMOGLOBIN DID DROP FROM A 7.4 TO 5.6 THIS HOSPITAL STAY. HE IS CURRENTLY BEING INFUSED WITH 2 UNITS OF PRBCS. HIS INR WAS ALSO 18.7 ON ADMISSION PATIENT WAS GIVEN 20 MG OF VITAMIN K CURRENTLY HIS INR IS AT 7.1 HE WILL HAVE A REPEAT INR, TROPONIN, CBC, BMP AT 12:00 P.M.. AN OCCULT BLOOD IS ALSO PENDING. PATIENT'S LIBRARY AIDE IS DR. PRADHAN. PATIENT HAS BEEN TESTED FOR INFLUENZA WHICH WAS NEGATIVE COVID-19 IS PENDING PATIENT IS CURRENTLY ON DROPPED ISOLATION UNTIL RESULTS RETURN ON ADMISSION PATIENT LACTIC ACID WAS 10.4 LACTIC ACID NOW WITHIN NORMAL LIMITS ,TROPONIN WAS ALSO NEGATIVE BNP ON ADMISSION 313 CURRENTLY 205, EKG SINUS TACH HEART RATE CURRENTLY 102 BLOOD CULTURES ARE PENDING. CHEST X-RAY DID INDICATE BILATERAL PNEUMONIA WITH SEVERE EMPHYSEMA. PATIENT ADMITTED FOR PNEUMONIA, COPD EXACERBATION AND RESPIRATORY ACIDOSIS. PATIENT BLOOD GAS CO2 ON ADMISSION 51.1 CURRENTLY WITHIN NORMAL LIMITS 37.5 RESPIRATORY ACIDOSIS HAS RESOLVED. PATIENT IS BEING TREATED FOR PNEUMONIA WITH AZITHROMYCIN AND ROCEPHIN .HE IS ALSO BEING GIVEN SOLU-MEDROL AT 60 MG Q.6 HOURS WITH NEBULIZERS FOR HIS COPD. HE DOES USE 10 L NASAL CANNULA AT HOME CONTINUOUSLY HE IS CURRENTLY ON A NON-REBREATHER AT 15 L. PATIENT'S CURRENT VITAL SIGNS ARE 93/64, 102, 28, 36.6 C HE IS AT 96% ON A NON-REBREATHER. PATIENT HAS A CT OF THE ABDOMEN AND PELVIS PENDING BUT DUE TO ANXIETY AND HIS INABILITY TO BREATHE IMAGING WILL BE ATTEMPTED LATER. PATIENT DENIES CP, PALPITATION, EXTREMITY NUMBNESS, LIGHTHEADNESS, DIZZINESS, CONSTIPATION, DIARRHEA, CHILLS OR FEVER. Review of Systems Constitutional: Constitutional: Reports fatigue, Reports lethargy and Reports weakness Cardiovascular: Cardiovascular: Denies chest pain at rest, Denies chest pain with activity, Denies palpitations, Reports dyspnea, Reports dyspnea on exertion and Reports orthopnea Respiratory: Respiratory: Reports cough ( BRIGHT RED), Reports dyspnea and Reports dyspnea on exertion Gastrointestinal: Gastrointestinal: Reports melena, Denies hematochezia, Denies change in bowel habits, Denies change in stool character, Denies dyspepsia, Denies heartburn, Denies nausea, Denies vomiting and Denies hematemesis Genitourinary: Genitourinary: Reports no additional male genitourinary complaints, Denies hematuria, Denies dysuria and Denies flank pain Musculoskeletal: Musculoskeletal: Reports joint swelling ( LEFT ELBOW) and Reports muscle weakness Integumentary/Breasts: Skin/Breast: Reports system reviewed and no additional complaints, except as docu Neurologic: Denies confusion, Denies vertigo, Denies dizziness, Denies syncope, Denies frequent falls, Denies headache(s) and Reports weakness Psychiatric: Psychiatric: Reports anxiety Endocrine: Endocrine: Reports no additional endocrine complaints and Reports fatigue Hematologic/Lymphatic: Hematologic/Lymphatic: Reports easy bruising ( ON ANTICOAGULANT THERAPY) [facility] Surgical History Surgical History History of repair of aneurysm of abdominal aorta Stented coron
[2019-06-07] MEDS: CHOLECALCIFEROL 1,000 UNIT TABLET 1000 UNITS PO (10:42)
[2019-06-07] MEDS: BENZONATATE 100 MG CAPSULE 200 MG PO ×2 (12:08→17:36)
[2019-06-07 12:31] LABS: Hematocrit 23.4 % (37.0-46.0); Hemoglobin 7.5 g/dL (12.4-15.3)
[2019-06-07 17:11] LABS: Hematocrit 27.1 % (37.0-46.0); Hemoglobin 8.7 g/dL (12.4-15.3); Mean Corpuscular HGB Conc 32.1 g/dL (32.0-36.0); Mean Corpuscular Volume 96.4 fL (78.0-102.0); Mean Platelet Volume 9.4 fl (8.7-11.0); Platelet Count Result 152 K/mm3 (150-420); Red Blood Count 2.81 M/mm3 (4.70-6.10); White Blood Count 6.8 K/mm3 (4.8-10.8)
[2019-06-07 17:21] LABS: Prothrombin Time 29.8 Seconds (9.64-11.0)
[2019-06-07 17:28] LABS: Band Neutrophils Percent 2 % (0-6); Basophils Percent Manual 0 % (0-1); Eosinophils Percent Manual 0 % (1-6); Lymphocytes Absolute Manual 0.95 K/mm3 (1.1-4.5); Lymphocytes Percent Manual 14 % (18-44); Metamyelocytes Percent 0 %; Monocytes Absolute Manual 0.06 K/mm3 (0.1-0.90); Monocytes Percent Manual 1 % (3-9); Myelocytes Percent 3 %; Neutrophils Percent Manual 79 % (46-73); Nucleated Red Blood Cells 9 %; Platelet Estimate Adequate (Adequate); Promyelocytes Percent 1 %; Total Cells Counted 100
[2019-06-07 17:29] LABS: Anion Gap 12.2 mmol/L (7-16); Blood Urea Nitrogen 46 mg/dL (7-18); Calcium 7.9 mg/dL (8.5-10.1); Carbon Dioxide 28 mmol/L (21-32); Chloride 107 mmol/L (98-108); Estimated CRCL calculation 35 ml/min; Estimated Glomerular Filt Rate 52; Glucose 138 mg/dL (70-99); Osmolality Calculated 309 mOsm/kg (285-295); Polychromasia 1+ (NORMAL); Potassium 4.2 mmol/L (3.5-5.1); Sodium 143 mmol/L (136-145)
[2019-06-07 17:30] LABS: CRP 3.3 mg/dL (0.0-0.9)
[2019-06-07 17:31] LABS: Troponin I 0.04 ng/mL (0.00-0.056)
--- NOTE | 2019-06-07 19:35 | PC.NURSE ---
Call placed to Dr Wyatt, pt requested something for anxiety, pt status reported, orders given for Ativan 0.5 po.
[2019-06-07] MEDS: MELATONIN 5 MG TABLET PO (20:05)
[2019-06-07] MEDS: LORAZEPAM 0.5 MG TABLET PO (20:05)
[2019-06-07] MEDS: SIMVASTATIN 10 MG TABLET 40 MG PO (20:05)
[2019-06-07] MEDS: PANTOPRAZOLE 40 MG TABLET PO (20:05)
--- NOTE | 2019-06-07 20:10 | PC.NURSE ---
pt o2 sat dropping to 86%, switched to NRB 15L per orders, pt's o2 sat raised to 94-95% on NRB, breathing easier on mask at this time.
--- NOTE | 2019-06-07 21:04 | PC.NURSE ---
Pt o2 sat 97% on NRB, asked pt if he would try to go down for his CT test, pt refused saying there's no way I can do that tonight Dr Wyatt made aware
--- NOTE | 2019-06-07 21:44 | PM.EVENT ---
Event Note Event Note Event Note: Patient states he continues to be short of breath. He denies any chest pain, abdominal pain, vomiting or hemoptysis. Alert and oriented. Coarse rhonchi bilaterally with modest accessory muscle use. He has no retractions. Regular tachycardia. Distal pulses are full and symmetric in extremities are warm dry pink. 1+ pitting edema at the ankles bilaterally transfusions are pending and then will recheck his H&H, kidney function and INR. Will continue to check for heme-positive stool. When patient is well enough to tolerate lying supine, we will do CT the head chest abdomen and pelvis. I have examined the patient and reviewed the chart. I discussed the patient's care with Raman Hoffman APN and agree with her assessment and plan.
--- NOTE | 2019-06-07 22:55 | PC.NURSE ---
pt has called out a couple times for assistance with the NRB mask, it keeps slipping down, attempts made to try and keep mask in place
[2019-06-08] VITALS (11 sets, daily range): BP systolic 98–109; BP diastolic 60–71; PULSE 72–109; RESP 20–28; TEMP 36.3–36.7; O2SAT 88–98
--- NOTE | 2019-06-08 00:10 | PC.NURSE ---
pt covid 19 test result negative, pt moved to room 209 to be closer to nursing desk, Dr Wyatt aware of room change and covid status
[2019-06-08 00:34] LABS: Hematocrit 26.3 % (37.0-46.0); Hemoglobin 8.4 g/dL (12.4-15.3)
[2019-06-08 00:38] LABS: INR 1.9; Prothrombin Time 19.5 Seconds (9.64-11.0)
--- NOTE | 2019-06-08 01:00 | PC.NURSE ---
pt is still having difficulty with keeping NRB mask on, Dr Wyatt made aware and will put in orders for hi-flow
--- NOTE | 2019-06-08 01:10 | PC.NURSE ---
Dr Wyatt at bedside starting the hi flow o2, settings of 50 L/min at 50%, Orders given to keep sats between 88-92%
[2019-06-08] MEDS: SODIUM CHLORIDE 0.9% IV 1,000 ML 100 ML IV CONT (04:25)
[2019-06-08 05:12] LABS: Hematocrit 22.5 % (37.0-46.0); Hemoglobin 7.4 g/dL (12.4-15.3); Mean Corpuscular HGB Conc 32.9 g/dL (32.0-36.0); Mean Corpuscular Hemoglobin 31.9 pg (27.0-31.0); Mean Platelet Volume 9.3 fl (8.7-11.0); Platelet Count Result 134 K/mm3 (150-420); Red Blood Count 2.32 M/mm3 (4.70-6.10); Red Cell Distribution Width 15.7 % (11.6-14.4); White Blood Count 6.7 K/mm3 (4.8-10.8)
[2019-06-08 05:22] LABS: INR 1.6; Prothrombin Time 16.7 Seconds (9.64-11.0)
[2019-06-08 05:26] LABS: Alanine Aminotransferase 15 U/L (16-63); Albumin Level 2.1 g/dL (3.4-5.0); Alkaline Phosphatase 33 U/L (46-116); Anion Gap 11.1 mmol/L (7-16); Aspartate Amino Transferase 18 U/L (15-37); Bilirubin,Total 0.5 mg/dL (0.00-1.00); Blood Urea Nitrogen 40 mg/dL (7-18); Calcium 7.4 mg/dL (8.5-10.1); Carbon Dioxide 27 mmol/L (21-32); Chloride 111 mmol/L (98-108); Estimated CRCL calculation 44 ml/min; Estimated Glomerular Filt Rate > 60; Glucose 123 mg/dL (70-99); Osmolality Calculated 310 mOsm/kg (285-295); Potassium 4.1 mmol/L (3.5-5.1); Sodium 145 mmol/L (136-145); Total Protein 4.6 g/dL (6.4-8.2)
--- NOTE | 2019-06-08 05:40 | PC.NURSE ---
RT in with pt, reports pt coughed up bright red blood twice, supercharger mechanic notified
[2019-06-08] MEDS: IPRATROPIUM 0.5 MG/ALBUTEROL SULFATE 2.5 MG AMPUL.NEB 3 ML INHALATION ×2 (05:43→13:57)
--- NOTE | 2019-06-08 05:55 | PC.NURSE ---
0549 Dr. Wyatt notified of pt coughing up bright red sputum; He was also notified of pt's H&H values. No new orders at this time.
[2019-06-08] MEDS: methylPREDNISolone SOD SUCC 125 MG VIAL 60 MG IV PUSH ×2 (05:59→13:23)
--- NOTE | 2019-06-08 06:03 | PC.NURSE ---
spoke with pt regarding the need for CT exam, he is still unsure if he is able to do it.
[2019-06-08 09:12] LABS: BNP 126 pg/mL (0-100)
--- NOTE | 2019-06-08 09:40 | PC.NURSE ---
Patient coughed hard and brought up bright red blood, filling half of one tissue.
[2019-06-08] MEDS: ASCORBIC ACID 500 MG TABLET PO (09:49)
[2019-06-08] MEDS: BENZONATATE 100 MG CAPSULE 200 MG PO ×2 (09:49→13:23)
[2019-06-08] MEDS: CHOLECALCIFEROL 1,000 UNIT TABLET 1000 UNITS PO (09:50)
[2019-06-08] MEDS: PANTOPRAZOLE 40 MG TABLET PO (09:50)
[2019-06-08 13:27] LABS: Base Excess ABG 0.6 mmol/L (0-2); HCO3 ABG 25.6 mmol/L (23-29); Oxygen Content ABG 11.5 %vol (16.0-22.0); Oxygen Saturation ABG 96.1 % (95-97); Oxyhemoglobin 95.3 % (94-100); PCO2 ABG 43.2 mmHg (35-45); PO2 ABG 89.1 mmHg (75-85); Total Hemoglobin 8.5 g/dL; pH ABG 7.39 (7.35-7.45)
[2019-06-08 13:28] LABS: Site Drawn RIGHT RADIAL
[2019-06-08 13:29] LABS: Device NON-REBREATHER MASK; Modified Allen's Test Pass
--- NOTE | 2019-06-08 13:54 | P.DS_ITS ---
DS: Diagnosis Admitting Diagnosis Admitting Diagnosis: Anemia in other chronic diseases classified elsewhere Discharge Diagnosis (1) Acute dehydration: Code(s): E86.0 - Dehydration Status: Acute Assessment and Plan: * RESOLVED * PATIENT WILL TRANSFER WITH IV FLUIDS (2) Elevated INR: Code(s): R79.1 - Abnormal coagulation profile Status: Acute Assessment and Plan: * PATIENT ON WARFARIN 3 MG DAILY DUE TO A HISTORY OF PE DIAGNOSED BACK IN 2019. CURRENTLY ON HOLD DUE TO INCREASED INR AND POSSIBLE HEMORRHAGE * PATIENT INR ON ADMISSION 18.7 CURRENTLY 1.6 AFTER RECEIVING 20 MG OF VITAMIN K * POSSIBLE BLEED PATIENT HEMOGLOBIN COUNT DROPPED FROM 7.4 TO 5.6. PATIENT INFUSED WITH 2 UNITS OF PRBCS CURRENTLY ON DISCHARGE 7 POINT * PATIENT WILL POSSIBLY NOT NEED ANYMORE ANTICOAGULANT THERAPY. LAST CTA NEGATIVE FOR PE * (3) DVT prophylaxis: Code(s): Z29.9 - Encounter for prophylactic measures, unspecified Status: Acute Assessment and Plan: CONTRAINDICATED AT THIS TIME DUE TO POSSIBLE HEMORRHAGE (4) Pulmonary embolus: Code(s): I26.99 - Other pulmonary embolism without acute cor pulmonale Status: Acute Assessment and Plan: * DIAGNOSED BACK IN 2019 PLACED ON WARFARIN DAILY. * WARFARIN CURRENTLY ON HOLD DUE TO INCREASED INR AND POSSIBLE HEMORRHAGE. * CONTACT DR. MURILLO INFORMED HIM THAT PATIENT WARFARIN WAS DISCONTINUED DUE TO POSSIBLE BLEED. WILL DETERMINE LATER WHETHER PATIENT WILL CONTINUE ANTICOAGULANT THERAPY. * CTA 04/19/2019 INDICATES No acute pulmonary embolism. (5) Chronic obstructive pulmonary disease with acute exacerbation: Code(s): J44.1 - Chronic obstructive pulmonary disease with (acute) exacerbation Status: Acute Assessment and Plan: * WORSENING DUE TO PNEUMONIA * COVID-19 NEGATIVE * CHEST X-RAY INDICATES SEVERE EMPHYSEMA * PATIENT WILL TRANSFER ON A NON-REBREATHER AT 13 L SATS IN THE 98%. PROCUREMENT ENGINEER WILL START PATIENT ON BIPAP AND USE INTUBATION THE LAST RESORT * PATIENT'S MANAGER REPORTING IS DR. PRADHAN CONSULTED AND AGREE THE PATIENT SHOULD BE TRANSFERRED HE WILL FOLLOW HIM WHILE HE IS AT [facility] IN [place] * (6) Community acquired pneumonia: Onset Date: ~04/19/19 Code(s): J18.9 - Pneumonia, unspecified organism Status: Acute Assessment and Plan: * PATIENT RECENTLY ADMITTED FOR COMMUNITY-ACQUIRED PNEUMONIA ON 04/20/19 PATIENT DISCHARGE WITH CEFDINIR. PATIENT READMITTED AGAIN ON 06/08/2019 CHEST X-RAY DID NOT INDICATE PNEUMONIA AT THAT TIME. THIS IS NOT FAILED ANTIBIOTIC THERAPY * CHEST X-RAY INDICATES Worsened airspace opacities in the mid and lower lung zones, left worse than right, consistent with pneumonia AND Severe emphysema. * CONTINUE ROCEPHIN, AND SOLU-MEDROL 60 MG Q.6 HOURS WITH NEBULIZER TREATMENTS Q.6 HOURS * BLOOD CULTURES ARE PENDING * WBC WITHIN NORMAL LIMITS LACTIC ACID ON ADMISSION 10.4 CURRENTLY WITHIN NORMAL LIMITS * COVID-19 NEGATIVE * CONTINUE OXYGEN SUPPLEMEN * CRP 3.3 REPEAT 2.0 IMPROVED (7) Anemia: Code(s): D64.9 - Anemia, unspecified Status: Acute Assessment and Plan: * POSSIBLY SECONDARY TO BLOOD LOSS DUE TO USE OF ANTICOAGULANT PATIENT ALSO WITH AN ELEVATED INR ON ADMISSION * 2 UNITS OF PRBCS INFUSED * PER NURSING STAFF OCCULT BLOOD COLLECTED BY ED DOCTOR RESULTED NEGATIVE * CONTINUE SUPPLEMENTARY OXYGEN * UNABLE TO OBTAIN CT OF THE ABDOMEN AND PELVIS OR HEAD DUE TO PATIENT'S INABILITY TO TOLERATE (8) Elevated seru
--- NOTE | 2019-06-08 13:54 | PM.DS ---
DS: Diagnosis Admitting Diagnosis Admitting Diagnosis: Anemia in other chronic diseases classified elsewhere Discharge Diagnosis (1) Acute dehydration: Code(s): E86.0 - Dehydration Status: Acute Assessment and Plan: RESOLVED PATIENT WILL TRANSFER WITH IV FLUIDS (2) Elevated INR: Code(s): R79.1 - Abnormal coagulation profile Status: Acute Assessment and Plan: PATIENT ON WARFARIN 3 MG DAILY DUE TO A HISTORY OF PE DIAGNOSED BACK IN 2019. CURRENTLY ON HOLD DUE TO INCREASED INR AND POSSIBLE HEMORRHAGE PATIENT INR ON ADMISSION 18.7 CURRENTLY 1.6 AFTER RECEIVING 20 MG OF VITAMIN K POSSIBLE BLEED PATIENT HEMOGLOBIN COUNT DROPPED FROM 7.4 TO 5.6. PATIENT INFUSED WITH 2 UNITS OF PRBCS CURRENTLY ON DISCHARGE 7 POINT PATIENT WILL POSSIBLY NOT NEED ANYMORE ANTICOAGULANT THERAPY. LAST CTA NEGATIVE FOR PE (3) DVT prophylaxis: Code(s): Z29.9 - Encounter for prophylactic measures, unspecified Status: Acute Assessment and Plan: CONTRAINDICATED AT THIS TIME DUE TO POSSIBLE HEMORRHAGE (4) Pulmonary embolus: Code(s): I26.99 - Other pulmonary embolism without acute cor pulmonale Status: Acute Assessment and Plan: DIAGNOSED BACK IN 2019 PLACED ON WARFARIN DAILY. WARFARIN CURRENTLY ON HOLD DUE TO INCREASED INR AND POSSIBLE HEMORRHAGE. CONTACT DR. MURILLO INFORMED HIM THAT PATIENT WARFARIN WAS DISCONTINUED DUE TO POSSIBLE BLEED. WILL DETERMINE LATER WHETHER PATIENT WILL CONTINUE ANTICOAGULANT THERAPY. CTA 04/19/2019 INDICATES No acute pulmonary embolism. (5) Chronic obstructive pulmonary disease with acute exacerbation: Code(s): J44.1 - Chronic obstructive pulmonary disease with (acute) exacerbation Status: Acute Assessment and Plan: WORSENING DUE TO PNEUMONIA COVID-19 NEGATIVE CHEST X-RAY INDICATES SEVERE EMPHYSEMA PATIENT WILL TRANSFER ON A NON-REBREATHER AT 13 L SATS IN THE 98%. HISTORIC SITES REGISTRAR WILL START PATIENT ON BIPAP AND USE INTUBATION THE LAST RESORT PATIENT'S BALE COVERER IS DR. PRADHAN CONSULTED AND AGREE THE PATIENT SHOULD BE TRANSFERRED HE WILL FOLLOW HIM WHILE HE IS AT [facility] IN [place] (6) Community acquired pneumonia: Onset Date: ~04/19/19 Code(s): J18.9 - Pneumonia, unspecified organism Status: Acute Assessment and Plan: PATIENT RECENTLY ADMITTED FOR COMMUNITY-ACQUIRED PNEUMONIA ON 04/20/19 PATIENT DISCHARGE WITH CEFDINIR. PATIENT READMITTED AGAIN ON 06/08/2019 CHEST X-RAY DID NOT INDICATE PNEUMONIA AT THAT TIME. THIS IS NOT FAILED ANTIBIOTIC THERAPY CHEST X-RAY INDICATES Worsened airspace opacities in the mid and lower lung zones, left worse than right, consistent with pneumonia AND Severe emphysema. CONTINUE ROCEPHIN, AND SOLU-MEDROL 60 MG Q.6 HOURS WITH NEBULIZER TREATMENTS Q.6 HOURS BLOOD CULTURES ARE PENDING WBC WITHIN NORMAL LIMITS LACTIC ACID ON ADMISSION 10.4 CURRENTLY WITHIN NORMAL LIMITS COVID-19 NEGATIVE CONTINUE OXYGEN SUPPLEMEN CRP 3.3 REPEAT 2.0 IMPROVED (7) Anemia: Code(s): D64.9 - Anemia, unspecified Status: Acute Assessment and Plan: POSSIBLY SECONDARY TO BLOOD LOSS DUE TO USE OF ANTICOAGULANT PATIENT ALSO WITH AN ELEVATED INR ON ADMISSION 2 UNITS OF PRBCS INFUSED PER NURSING STAFF OCCULT BLOOD COLLECTED BY ED DOCTOR RESULTED NEGATIVE CONTINUE SUPPLEMENTARY OXYGEN UNABLE TO OBTAIN CT OF THE ABDOMEN AND PELVIS OR HEAD DUE TO PATIENT'S INABILITY TO TOLERATE (8) Elevated serum creatinine: Code(s): R79.89 - Other specified abnormal findings of blood chemistry Status: Acute Assessment and Plan: RESOLVED AND IMPROVED POSSIBLY SECONDARY TO DEHYDRATION VERSUS HEMORRHAGE PATIENT'S BASELINE CREATININE 1.20. CURRENTLY 1.07 AVOID NEPHROTOXINS AGENTS (9) CHF (congestive heart failure): Code(s): I50.9 - Heart failure, unspecified Status: Acute
== END 2019-06-08 15:05 | disposition short-term general hospital (02) | DRG 190 ==
LOC: CHSED 20:24 → CHS2ND 22:15
PROVIDERS: Emergency Medicine; Nurse Practitioner; Admitting Provider Emergency Medicine; Emergency Provider Emergency Medicine; PCP Internal Medicine; Visit Provider Emergency Medicine
DX: J44.0 Chronic obstructive pulmonary disease with (acute) lower respiratory infection (principal); I73.9 Peripheral vascular disease, unspecified; D64.9 Anemia, unspecified; J18.9 Pneumonia, unspecified organism; Z20.828 Contact with and (suspected) exposure to other viral communicable diseases; E86.0 Dehydration; J44.1 Chronic obstructive pulmonary disease with (acute) exacerbation; D50.0 Iron deficiency anemia secondary to blood loss (chronic); R79.1 Abnormal coagulation profile; I50.9 Heart failure, unspecified; I27.20 Pulmonary hypertension, unspecified; I25.10 Atherosclerotic heart disease of native coronary artery without angina pectoris; Z87.891 Personal history of nicotine dependence; Z79.01 Long term (current) use of anticoagulants; Z86.711 Personal history of pulmonary embolism; Z99.81 Dependence on supplemental oxygen
CPT/HCPCS: 36415; 36430; 36600; 71045; 80048; 80053; 81001; 82375; 82805; 83050; 83605; 83735; 83880; 84484; 85014; 85018; 85025; 85027; 85380; 85610; 86140; 86850; 86900; 86901; 86923; 87040; 87635; 87804; 93005; 94640; 96361; 96365; 96367; 96372; 96375; 99285; A9270; J0456; J0696; J2930; J3430; J7030; J7050; P9016; P9017; U0002